=== PATIENT | male | born 1940 | race Caucasian/White ===

== ENCOUNTER → 2016-10-11 | Outpatient (REF) | payer MEDICARE, OTHER ==
[~2016-10-11] MED LIST: /WARF5TA OR; ACET65TA OR; ASPI81TA3 OR; DIGO0.126 OR; LACTASE ENZYME PO; LASI20TA OR; LEVO75TA2 OR; NEXI20CA OR; NITR0.4S SL; PRESERVISION PO; VITA250T OR
[2016-10-15 00:15] LABS: Lyme Disease IgG/IgM Antibodie <0.91 ISR (0.00-0.90); Lyme Disease IgM Ab Quantitati <0.80 index (0.00-0.79)
== END ==
LOC: M SFHCPLAZ 11:55
PROVIDERS: ATTEND Nurse Practitioner Family
DX: S60.561A Insect bite (nonvenomous) of right hand, initial encounter (principal); X58.XXXA Exposure to other specified factors, initial encounter; Y92.89 Other specified places as the place of occurrence of the external cause; Y93.89 Activity, other specified; Y99.8 Other external cause status
CPT/HCPCS: 36415; 86617; G0463

== ENCOUNTER → 2016-11-25 | Outpatient (REF) | payer MEDICARE, OTHER | LOC: M LAB REF 15:08 | PROVIDERS: ATTEND Surgery | DX: C44.519 Basal cell carcinoma of skin of other part of trunk (principal) ==

== ENCOUNTER → 2017-01-03 | Outpatient (REF) | payer MEDICARE, OTHER ==
[2017-01-03 13:18] LABS: INR 3.12
== END ==
LOC: M SFHCPLAZ 09:07
PROVIDERS: ATTEND Internal Medicine
DX: I48.91 Unspecified atrial fibrillation (principal)

== ENCOUNTER → 2017-07-04 | Outpatient (REF) | payer MEDICARE, OTHER ==
[2017-07-04 12:12] LABS: HEMATOCRIT 42.8 % (42.0-52.0); HEMOGLOBIN 13.9 g/dl (14.0-18.0); MEAN CORPUSCULAR HEMOGLOBIN 32.9 pg (27.0-33.0); MEAN CORPUSCULAR HGB CONC 32.5 g/dl (32.0-36.5); MEAN CORPUSCULAR VOLUME 101.4 fl (80.0-96.0); PLATELET COUNT, AUTOMATED 150 10^3/uL (150-450); RED BLOOD COUNT 4.22 10^6/uL (4.30-6.10); RED CELL DISTRIBUTION WIDTH 13.2 % (11.5-14.5); WHITE BLOOD COUNT 7.6 10^3/uL (4.0-10.0)
[2017-07-04 12:13] LABS: INR 2.43; PROTHROMBIN TIME 27.4 SECONDS (12.4-14.5)
[2017-07-04 12:18] LABS: ALBUMIN 3.6 GM/DL (3.2-5.2); ALBUMIN/GLOBULIN RATIO 1.16 (1.00-1.93); ALKALINE PHOSPHATASE 75 U/L (45-117); ALT/SGPT 16 U/L (12-78); ANION GAP 5 MEQ/L (8-16); AST/SGOT 17 U/L (7-37); BILIRUBIN,TOTAL 0.5 MG/DL (0.2-1.0); BLOOD UREA NITROGEN 20 MG/DL (7-18); CALCIUM LEVEL 9.1 MG/DL (8.8-10.2); CARBON DIOXIDE LEVEL 30 MEQ/L (21-32); CHLORIDE LEVEL 105 MEQ/L (98-107); GLOMERULAR FILTRATION RATE > 60.0 (>42); GLUCOSE, FASTING 98 MG/DL (70-100); POTASSIUM SERUM 4.4 MEQ/L (3.5-5.1); SODIUM LEVEL 140 MEQ/L (136-145); TOTAL PROTEIN 6.7 GM/DL (6.4-8.2)
== END ==
LOC: M SFHCPLAZ 08:41
DX: Z51.81 Encounter for therapeutic drug level monitoring (principal); Z79.01 Long term (current) use of anticoagulants; I25.10 Atherosclerotic heart disease of native coronary artery without angina pectoris
CPT/HCPCS: 80053

== ENCOUNTER → 2017-08-12 | Outpatient (REF) | payer MEDICARE, OTHER ==
[2017-08-12 14:37] LABS: INR 2.39
== END ==
LOC: M SFHCPLAZ 10:57
DX: Z51.81 Encounter for therapeutic drug level monitoring (principal); Z79.01 Long term (current) use of anticoagulants
CPT/HCPCS: 85610

== ENCOUNTER → 2018-01-12 | Outpatient (REF) | payer MEDICARE, OTHER ==
[2018-01-12 12:22] LABS: ALBUMIN 3.5 GM/DL (3.2-5.2); ALBUMIN/GLOBULIN RATIO 1.09 (1.00-1.93); ALKALINE PHOSPHATASE 75 U/L (45-117); ALT/SGPT 16 U/L (12-78); ANION GAP 6 MEQ/L (8-16); AST/SGOT 15 U/L (7-37); BILIRUBIN,TOTAL 0.4 MG/DL (0.2-1.0); BLOOD UREA NITROGEN 25 MG/DL (7-18); CALCIUM LEVEL 8.4 MG/DL (8.8-10.2); CARBON DIOXIDE LEVEL 30 MEQ/L (21-32); CHLORIDE LEVEL 104 MEQ/L (98-107); CHOLESTEROL LEVEL 127 MG/DL (<200); CHOLESTEROL RISK RATIO 3.256 (<5); CREATININE FOR GFR 1.01 MG/DL (0.70-1.30); GLOMERULAR FILTRATION RATE > 60.0 (>42); GLUCOSE, FASTING 104 MG/DL (70-100); HDL CHOLESTEROL 39 MG/DL (>40); LDL CHOLESTEROL 65 MG/DL (<100); MAGNESIUM LEVEL 1.9 MG/DL (1.8-2.4); NON-HDL-C 88 MG/DL; POTASSIUM SERUM 4.5 MEQ/L (3.5-5.1); SODIUM LEVEL 140 MEQ/L (136-145); TOTAL PROTEIN 6.7 GM/DL (6.4-8.2); TRIGLYCERIDES LEVEL 116 MG/DL (<150)
[2018-01-12 12:27] LABS: ESTIMATED AVERAGE GLUCOSE 114 MG/DL (60-110); HEMOGLOBIN A1c 5.6 %
== END ==
LOC: M SFHCPLAZ 09:20
DX: I10 Essential (primary) hypertension (principal); R73.01 Impaired fasting glucose; E78.00 Pure hypercholesterolemia, unspecified
CPT/HCPCS: 83735

== ENCOUNTER → 2018-04-10 | Outpatient (REF) | payer MEDICARE, OTHER | LOC: M SFHCPLAZ 13:53 | PROVIDERS: ATTEND Internal Medicine | DX: E03.9 Hypothyroidism, unspecified (principal) | CPT/HCPCS: 36415; 84443; G0463 ==

== ENCOUNTER → 2018-05-29 | Outpatient (REF) | payer MEDICARE, OTHER ==
[2018-05-29 16:01] LABS: HEMATOCRIT 43.2 % (42.0-52.0); HEMOGLOBIN 14.2 g/dl (13.5-17.5); MEAN CORPUSCULAR HEMOGLOBIN 32.8 pg (27.0-33.0); MEAN CORPUSCULAR HGB CONC 32.9 g/dl (32.0-36.5); MEAN CORPUSCULAR VOLUME 99.8 fl (80.0-96.0); PLATELET COUNT, AUTOMATED 138 10^3/uL (150-450); RED BLOOD COUNT 4.33 10^6/uL (4.30-6.10); WHITE BLOOD COUNT 8.5 10^3/uL (4.0-10.0)
[2018-05-29 16:04] LABS: ALBUMIN 3.4 GM/DL (3.2-5.2); ALT/SGPT 17 U/L (12-78); BILIRUBIN,TOTAL 0.6 MG/DL (0.2-1.0); BLOOD UREA NITROGEN 19 MG/DL (7-18); CALCIUM LEVEL 8.8 MG/DL (8.8-10.2); CARBON DIOXIDE LEVEL 27 MEQ/L (21-32); CHLORIDE LEVEL 105 MEQ/L (98-107); CREATININE FOR GFR 0.94 MG/DL (0.70-1.30); GLOMERULAR FILTRATION RATE > 60.0 (>42); GLUCOSE, FASTING 87 MG/DL (70-100); POTASSIUM SERUM 4.6 MEQ/L (3.5-5.1); SODIUM LEVEL 140 MEQ/L (136-145); TOTAL PROTEIN 6.5 GM/DL (6.4-8.2)
[2018-05-29 16:11] LABS: INR 1.1; PROTHROMBIN TIME 14.3 SECONDS (12.1-14.4)
[2018-05-29 16:12] LABS: PARTIAL THROMBOPLASTIN TIME 31.3 SECONDS (25.4-37.6)
== END ==
LOC: M SFHCPLAZ 13:57
PROVIDERS: ATTEND Internal Medicine
DX: Z01.818 Encounter for other preprocedural examination (principal); I50.30 Unspecified diastolic (congestive) heart failure; Z79.01 Long term (current) use of anticoagulants
CPT/HCPCS: 36415; 80053; 85027; 85610; 85730; G0463

== ENCOUNTER → 2018-07-12 | Outpatient (REF) | payer MEDICARE, OTHER ==
[~2018-07-12] MED LIST changes: -/WARF5TA OR; +COUM1TAB17 OR
[2018-07-12 14:13] LABS: ALBUMIN 3.4 GM/DL (3.2-5.2); ALT/SGPT 15 U/L (12-78); BILIRUBIN,TOTAL 0.7 MG/DL (0.2-1.0); BLOOD UREA NITROGEN 21 MG/DL (7-18); CALCIUM LEVEL 8.7 MG/DL (8.8-10.2); CARBON DIOXIDE LEVEL 29 MEQ/L (21-32); CHLORIDE LEVEL 105 MEQ/L (98-107); CREATININE FOR GFR 0.97 MG/DL (0.70-1.30); GLOMERULAR FILTRATION RATE > 60.0 (>35); GLUCOSE, FASTING 89 MG/DL (70-100); MAGNESIUM LEVEL 2.1 MG/DL (1.8-2.4); POTASSIUM SERUM 4.2 MEQ/L (3.5-5.1); SODIUM LEVEL 141 MEQ/L (136-145); TOTAL PROTEIN 6.1 GM/DL (6.4-8.2)
[2018-07-12 14:19] LABS: HEMOGLOBIN A1c 5.7 %
[2018-07-12 15:58] LABS: HEMATOCRIT 42.6 % (42.0-52.0); HEMOGLOBIN 13.9 g/dl (13.5-17.5); MEAN CORPUSCULAR HEMOGLOBIN 32.9 pg (27.0-33.0); MEAN CORPUSCULAR HGB CONC 32.6 g/dl (32.0-36.5); MEAN CORPUSCULAR VOLUME 100.9 fl (80.0-96.0); PLATELET COUNT, AUTOMATED 174 10^3/uL (150-450); RED BLOOD COUNT 4.22 10^6/uL (4.30-6.10); WHITE BLOOD COUNT 7.6 10^3/uL (4.0-10.0)
== END ==
LOC: M SFHCPLAZ 10:33
PROVIDERS: ATTEND Internal Medicine
DX: G47.30 Sleep apnea, unspecified (principal); I50.30 Unspecified diastolic (congestive) heart failure; R73.01 Impaired fasting glucose; E03.9 Hypothyroidism, unspecified

== ENCOUNTER 2018-08-13 22:40 | Observation (INO) | payer MEDICARE, OTHER ==
[~2018-08-13] VITALS: Ht 180.3 cm; Wt 93.3 kg
--- NOTE | 2018-08-14 00:14 | REPVR ---
EXAM: CT Head Without Contrast EXAM DATE/TIME: 08/13/2018 11:32 PM CLINICAL HISTORY: 78 years old, male; Pain; Other: Weakness; Additional info: L weakness TECHNIQUE: Imaging protocol: Axial computed tomography images of the head/brain without contrast. Radiation optimization: All CT scans at this facility use at least one of these dose optimization techniques: automated exposure control; mA and/or kV adjustment per patient size (includes targeted exams where dose is matched to clinical indication); or iterative reconstruction. COMPARISON: No relevant prior studies available. FINDINGS: Brain: No intracranial mass, focal mass effect or midline shift. No acute intracranial hemorrhage. Mild decreased attenuation in periventricular/centrum semiovale white matter. No focal effacement of cortical sulci to indicate acute cortical infarct. 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 Bones/joints: No calvarial fracture or destructive process. Sinuses: Visualized paranasal sinuses are unremarkable. Mastoid air cells: Mastoid air cells are normally aerated. Orbits: Visualized globes and orbits are unremarkable. Ocular globe scleral prostheses are present Soft tissues: No focal extracranial soft tissue swelling. IMPRESSION: 1. No acute intracranial abnormality. 2. Atrophy and chronic microangiopathic change in supratentorial white matter. Electronically signed by: Jt Shabazz On 08/14/2018 00:13:54 AM
[2018-08-14 00:39] LABS: BASO # 0.1 10^3/uL (0.0-0.2); BASO % 0.6 % (0.0-1.0); EOS # 0.2 10^3/uL (0.0-0.50); EOS % 2.2 % (0.0-3.0); HEMATOCRIT 42.1 % (42.0-52.0); HEMOGLOBIN 14.1 g/dl (13.5-17.5); LYMPH # 2.4 10^3/uL (1.5-4.5); LYMPH % 27.8 % (24.0-44.0); MEAN CORPUSCULAR HEMOGLOBIN 34.1 pg (27.0-33.0); MEAN CORPUSCULAR HGB CONC 33.5 g/dl (32.0-36.5); MEAN CORPUSCULAR VOLUME 101.9 fl (80.0-96.0); MONO # 0.8 10^3/uL (0.0-0.8); MONO % 9.6 % (0.0-5.0); NEUTROPHILS # 5.2 10^3/uL (1.8-7.7); NEUTROPHILS % 59.3 % (36.0-66.0); PLATELET COUNT, AUTOMATED 143 10^3/uL (150-450); RED BLOOD COUNT 4.13 10^6/uL (4.30-6.10); WHITE BLOOD COUNT 8.7 10^3/uL (4.0-10.0)
[2018-08-14 00:50] LABS: INR 1.13; PROTHROMBIN TIME 14.7 SECONDS (12.1-14.4)
[2018-08-14 01:01] LABS: BLOOD UREA NITROGEN 28 MG/DL (7-18); CALCIUM LEVEL 8.3 MG/DL (8.8-10.2); CARBON DIOXIDE LEVEL 30 MEQ/L (21-32); CHLORIDE LEVEL 108 MEQ/L (98-107); CREATININE FOR GFR 1.06 MG/DL (0.70-1.30); DIGOXIN LEVEL 0.5 NG/ML (0.5-2.0); GLOMERULAR FILTRATION RATE > 60.0 (>35); GLUCOSE, FASTING 114 MG/DL (70-100); POTASSIUM SERUM 3.9 MEQ/L (3.5-5.1); SODIUM LEVEL 142 MEQ/L (136-145)
--- NOTE | 2018-08-14 02:15 | HPEPDOC ---
General Date of Admission Chief Complaint The patient is a 78-year-old male admitted with a reason for visit of Neuro Issue. History of Present Illness Mr. Sheets is an 78 years old man who was cleaning his car in the garage last night, when suddenly he felt loss of sensation in his right arm and right leg. He is not sure if he also had weak strength, but he felt awkward he was walked into the house. Denies any loss of balance, or problem with speech, vision or other problems. The symptoms lasted about 15 minutes and subsided spontaneously. Pt has hx/o AF and takes Eliquis. In the ER, pt remained neurologically intact. Mental status, head CT, vitals and basic labs were normal. Home Medications Scheduled Apixaban (Eliquis) 5 Mg Tablet, 5 MG PO BID, (Reported) Aspirin (Aspir 81) 81 Mg Tablet.dr, 81 MG PO DAILY, (Reported) Carboxymethyl/Glycerin/Poly80 (Refresh Optive Advanced Drops) 10 Ml Drops, 1 DROP OU QID, (Reported) Cholecalciferol (Vitamin D3) (Vitamin D3) 2,000 Unit Capsule, 2,000 UNIT PO DAILY, (Reported) Clobetasol Propionate (Clobetasol Propionate) 0.05% 118ML Shampoo, 1 APPLIC TOP 2XWK, (Reported) APPLY TO DRY SCALP Digoxin (Digoxin) 125 Mcg Tablet, 125 MCG PO 4XWK, (Reported) TAKES ON TUESDAY, TUESDAY, TUESDAY AND TUESDAY Eplerenone (Eplerenone) 50 Mg Tablet, 50 MG PO DAILY, (Reported) Esomeprazole Magnesium (Esomeprazole Magnesium) 40 Mg Capsule.dr, 40 MG PO QPM, (Reported) Evolocumab (Repatha Sureclick) 140 Mg/1 Ml Pen.injctr, 140 MG SC Q2WK, (Reported) Glucosa Campa 2Kcl/Chondroitin Campa (Glucosamine & Chondroitin Cap) 1 Each Capsule, 1 EACH PO DAILY, (Reported) Icosapent Ethyl (Vascepa) 1 Gm Capsule, 1 GM PO BID, (Reported) Levothyroxine Sodium (Synthroid) 75 Mcg Tablet, 75 MCG PO DAILY, (Reported) Tamsulosin HCl (Flomax) 0.4 Mg Capsule, 0.4 MG PO QPM, (Reported) TAKES 1/2 HOUR AFTER DINNER Vit C/E/Zn/Coppr/Lutein/Zeaxan (Preservision Areds 2 Softgel) 1 Each Capsule, 1 EACH PO BID, (Reported) Scheduled PRN Carboxymethylcellulos/Glycerin (Refresh Optive Gel Eye Drops) 10 Ml Drops.gel, 1 DROP OU QHS PRN for DRY EYES, (Reported) Nitroglycerin (Nitrostat) 0.4 Mg Tab.subl, 0.4 MG SL NITRO PRN for CHEST PAIN, (Reported) Allergies Coded Allergies: Izbezuo-Wyx-Nyv Reductase Inhibitor (Verified Allergy, Unknown, CRAMPING , 08/13/18) diazepam (Verified Allergy, Unknown, MAKES PSYCOTIC , 08/13/18) Past Medical History Medical History PAST MEDICAL HISTORY DIASTOLIC CONGESTIVE HEART FAILURE HYPERCHOLESTEROLEMIA SLEEP APNEA ELEVATED FASTING GLUCOSE HYPOTHYROIDISM PERIPHERAL NEUROPATHY LOWER EXTREMITY EDEMA CORONARY ARTERY DISEASE LONGTERM (CURRENT) USE OF ANTICOAGULANTS SLEEP RELATED LEG CRAMPS HYPERTENSION NEOPLASM OF BLADDER CHRONIC ATRIAL FIBRILLATION RIGHT LEG PAIN CONFUSION, HX OF, WITHOUT NEURO FINDINGS ALLERGIES LATEX GLOVES: IRRITATION - ALLERGY VALIUM: MAKES PATIENT PSYCHOTIC, PER PATIENT - ALLERGY SURGICAL HISTORY TONSILLECTOMY BILATERAL RETINAL DETACHMENT REPAIRS 1983 LEFT INGUINAL HERNIA REPAIR 06/16. 06/2007 COLONOSCOPY 10/2008 RIGHT INGUINAL HERNIA REPAIR 12/18. 12/2008 BILATERAL CATARACT EXTRACTIONS 07/2009 REPAIR OF ABDOMINAL AORTIC ANEURYSM AND BILATERAL COMMON ILIAC ARTERY ANEURYSMS WITH AORTA BI-INTERNAL ILIAC ARTERY BYPASS GRAFT AND AORTA TO EXTERNAL ILIAC ARTERY BYPASS GRAFT ON 07/06/2010 AT THE [facility] [place]. 07/06/10 RIGHT ILIAC ARTERY STENT 02/18/2011. 02/18/2011 PACEMAKER 08/04/11 [facility], 3 CARDIAC STENTS PLACED WITH ANGIOPLASTY AND ABLATION, DR. 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 ESCOTO 07/12/2017 TURBT AND CIRCUMCISION 06/12/2018 FAMILY HISTORY FATHER: 78 YRS, DIAGNOSED WITH HEART DISEASE MOTHER: 78 YRS, PERITONITIS FATHER AND MOTHER OF NATURAL CAUSES. THREE BROTHERS LIVING, ONE HAD PROSTATE CANCER. THREE HEALTHY DAUGHTERS. Social History * Smoker: Denies Alcohol: Denies Drugs: denies A-FIB/CHADSVASC A-FIB History Current/History of A-Fib/PAF?: Yes Current Oral Anticoagulant The: Yes Age/Risk Factor Scoring CHADSVASC: CHADSVASC Response (Comments) Value Age Risk Factor Age >/= 75 years old 2 Hx of HTN Yes 1 Total 3 Treatment Treatment ordered: Apixaban Review of Systems Constitutional: Denies: Chills, Fever, Malaise, Night Sweats, Weakness, Fatigue, Weight Loss, Lethargy, Other Eyes: Denies: Pain, Vision change, Conjunctivae inflammation, Eyelid inflammation, Redness, Other ENT: Denies: Head Aches, Ear Pain, Dysphagia, Sinus Congestion, Post Nasal Drip, Sore Throat, Epistaxis, Other Symptoms Skin: Denies: Rash, Lesions, Jaundice, Bruising, Itching, Dry, Breakdown, Nail Changes, Other Pulmonary: Denies: Dyspnea, Cough, Pleuritic Chest Pain, Other Symptoms Cardiovascular: Denies: Chest Pain, Palpitations, Orthopnea, Paroxysmal Noc. Dyspnea, Edema, Lt Headedness, Other Symptoms Gastrointestinal: Denies: Nausea, Vomiting, Abdominal Pain, Diarrhea, Constipation, Melena, Hematochezia, Other Symptoms Genitourinary: Denies: Dysuria, Frequency, Incontinence, Hematuria, Retention, Other Symptoms Hematologic: Denies: Bruising, Bleeding Excessively, Petecchia, Purpura, Enlarged Lymph Nodes, Other Hematologic Endocrine: Denies: Polydipsia, Polyphagia, Polyuria, Heat Intolerance, Cold Intolerance, Other Endocrine Sx Musculoskeletal: Denies: Neck Pain, Back Pain, Shoulder Pain, Arm Pain, Hand Pain, Leg Pain, Foot Pain, Joint Pain, Muscle Pain, Spasms, Other Symptoms Neurological: Denies: Weakness, Numbness, Incoordination, Change in speech, Confusion, Seizures, Other Symptoms Psych: Denies: Mood Normal, Anxiety, Depression, Memory Issues, Thoughts of Self Harm, Anger, Thoughts of Harming Other, Other Psych Physical Examination General Exam: Positive: Alert, Cooperative, No Acute Distress Eye Exam: Positive: PERRLA ENT Exam: Positive: Atraumatic Neck Exam: Positive: Supple, Other (no carotid bruit); Negative: JVD Chest Exam: Positive: Clear to auscultation, Rales Heart Exam: Positive: Rate Normal, Irregular Rhythm Abdomen Exam: Positive: Normal bowel sounds, Soft, Tenderness Extremity Exam: Negative: Edema Skin Exam: Negative: Rash Neuro Exam: Positive: Normal Speech, Strength at 5/5 X4 ext, Normal Tone, Sensation Intact, Cranial Nerves 3-12 NL Psych Exam: Positive: Mental status NL, Mood NL Vital Signs Vital Signs Date Time Temp Pulse Resp B/P (MAP) Pulse Ox O2 Delivery O2 Flow Rate FiO2 08/14/18 00:30 80 16 138/64 (88) 97 Room Air 08/13/18 23:17 96.9 Laboratory Data Labs 24H Laboratory Tests 2 08/13/18 22:59: Immature Granulocyte % (Auto) 0.5, White Blood Count 8.7, Red Blood Count 4.13L, Hemoglobin 14.1, Hematocrit 42.1, Mean Corpuscular Volume 101.9H, Mean Corpu scular Hemoglobin 34.1H, Mean Corpuscular Hemoglobin Concent 33.5, Red Cell Distribution Width 13.1, Platelet Count 143L, Neutrophils (%) (Auto) 59.3, Lymphocytes (%) (Auto) 27.8, Monocytes (%) (Auto) 9.6H, Eosinophils (%) (Auto) 2.2, Basophils (%) (Auto) 0.6, Neutrophils # (Auto) 5.2, Lymphocytes # (Auto) 2.4, Monocytes # (Auto) 0.8, Eosinophils # (Auto) 0.2, Basophils # (Auto) 0.1, Nucleated Red Blood Cells % (auto) 0.0, Prothrombin Time 14.7H, Prothromb Time International Ratio 1.13, Activated Partial Thromboplast Time 33.0, Anion Gap 4L, Glomerular Filtration Rate > 60.0, Blood Urea Nitrogen 28H, Creatinine 1.06, Sodium Level 142, Potassium Level 3.9, Chloride Level 108H, Carbon Dioxide Level 30, Calcium Level 8.3L, Digoxin Level 0.5 CBC/BMP Laboratory Tests 08/13/18 22:59 Red Blood Count 4.13 L, Mean Corpuscular Volume 101.9 H, Mean Corpuscular Hemoglobin 34.1 H, Mean Corpuscular Hemoglobin Concent 33.5, Red Cell Distribution Width 13.1, Neutrophils (%) (Auto) 59.3, Lymphocytes (%) (Auto) 27.8, Monocytes (%) (Auto) 9.6 H, Eosinophils (%) (Auto) 2.2, Basophils (%) (Auto) 0.6, Neutrophils # (Auto) 5.2, Lymphocytes # (Auto) 2.4, Monocytes # (Auto) 0.8, Eosinophils # (Auto) 0.2, Basophils # (Auto) 0.1, Calcium Level 8.3 L Assessment/Plan 78 years old man with AF presenting with brief episode of loss of sensation on left arm and left leg. TIA - Keep in Observation overnight - Continue home meds including Eliquis - Echo and carotid duplex in the morning - Monitor clinically Plan / VTE VTE Prophylaxis Ordered?: No VTE Exclusion Mechanical Proph: Other (pt on eliquis) VTE Exclusion Pharmacological: Other (pt on eliquis) Plan Anticipated Discharge: Home LYNDA BURGOS MD August 14, 2018 02:15
[2018-08-14] MEDS ORDERED: SYNT75TA PO (02:37)
[2018-08-14] MEDS ORDERED: REFR1GEL OU (02:37)
[2018-08-14] MEDS ORDERED: DIGO0.12 PO (02:37)
[2018-08-14] MEDS ORDERED: VASC1CAP2 PO (02:37)
[2018-08-14] MEDS ORDERED: FLOM0.4C39 PO (02:37)
[2018-08-14] MEDS ORDERED: REPA1INJ SC (02:37)
[2018-08-14] MEDS ORDERED: REFRSOL OU (02:37)
[2018-08-14] MEDS ORDERED: ELIQ5TAB PO (02:37)
[2018-08-14] MEDS ORDERED: D200CAP2 PO (02:37)
[2018-08-14] MEDS ORDERED: PRES10CA2 PO (02:37)
[2018-08-14] MEDS ORDERED: GLUC500C37 PO (02:37)
[2018-08-14] MEDS ORDERED: EPLE50TA PO (02:37)
[2018-08-14] MEDS ORDERED: ESOM1CAP5 PO (02:37)
[2018-08-14] MEDS ORDERED: ASPI81TA85 PO (02:37)
[2018-08-14] MEDS ORDERED: NITR4TASL SL (02:37)
[2018-08-14] MEDS ORDERED: CLOB-24 TOP (02:37)
[2018-08-14 04:00] VITALS: BP 140/80
[2018-08-14] MEDS: LEVOTHYROXINE 75MCG TABLET (0.075MG) PO SCH (05:42)
[2018-08-14 06:00] VITALS: BP 130/62
--- NOTE | 2018-08-14 08:24 | ECGEPIP ---
Stationary ECG Study [facility] - ED Test Date: 2018-08-13 Pat Name: ZACHARY AMARO Department: Room: [place] [address] Gender: M Guest Relations Executive: JULIAN : 1940 Requested By: BONILLA BYRNE Order Number: [id number] Reading MD: Josep Pak Measurements Intervals [place] Rate: 91 P: [place]: 0 QRS: -34 QRSD: 100 T: 50 QT: 334 QTc: 413 Interpretive Statements ATRIAL FIBRILLATION LEFT AXIS DEVIATION INCOMPLETE RIGHT BUNDLE BRANCH BLOCK POOR R WAVE PROGRESSION SIMILAR TO 08/04/11 Electronically Signed On 08-14-2018 8:24:14 EDT by Josep Pak
--- NOTE | 2018-08-14 09:04 | REP ---
Duplex carotid sonography: History: TIA. Left-sided weakness. Findings: Antegrade flow was observed in both vertebral arteries. Right carotid: The right common carotid artery is unremarkable on two-dimensional scanning. There is mild to moderate mixed plaquing in the right carotid bulb and proximal ICA on two-dimensional scanning. Color flow and spectral Doppler interrogation are unremarkable however. Velocity chart right carotid: Right CCA PSV 96 cm/S, right ICA PSV 67, EDV 19, right ECA PSV 68 right, ICA/CCA ratio normal 1.3. Impression: 16-49% category narrowing in the right carotid bulb and proximal ICA. Left carotid: The left common carotid artery is unremarkable on two-dimensional scanning. There is moderate mixed plaquing in the bulb and proximal ICA and proximal ECA on two-dimensional scanning. Color flow and spectral Doppler interrogation are unremarkable. Velocity chart left carotid: Left CCA PSV 71 cm/S, left ICA PSV 68, EDV 21, left ECA PSV 88 left ICA/cc ratio normal 1.4. Impression: 16-49% category narrowing in the left ICA by Doppler velocity criteria. Probably near the upper end of this range. Electronically Signed by Mike Christiansen MD 08/14/2018 11:41 A
[2018-08-14] MEDS: ASPIRIN 81 MG ENTERIC TAB PO SCH (09:17)
[2018-08-14] MEDS: PANTOPRAZOLE 40MG TAB (PROTONIX) PO SCH (09:17)
[2018-08-14] MEDS: APIXABAN 5 MG TAB (ELIQUIS) PO SCH ×2 (09:17→21:11)
[2018-08-14 10:00] VITALS: BP 115/57
[2018-08-14 14:00] VITALS: BP 112/61
--- NOTE | 2018-08-14 17:12 | IPNPDOC ---
Date Seen The patient was seen on 08/14/18. Progress Note SUBJECTIVE: Patient was seen and examined this morning. He currently has no complaints. He states that he has had no further numbness on his left side. He denies any weakness. He states that he never had any weakness. He recalls a similar event to this several years ago. He has stated that he has had [employer] Amnesia in the past however, currently denies any confusion. Patient currently has no complaints OBJECTIVE PHYSICAL EXAMINATION: VITAL SIGNS: Please see below. GENERAL: Awake, alert, and oriented. He appears in no acute distress. He is lying comfortably in his chair. He is conversive and cheerful HEENT: Atrumatic normocephalic. Eyes are nonicteric. Trachea is midline. Dentition is good. Mucous membranes are pink and moist CARDIOVASCULAR: Normal S1, S2. Irregularly irregular rhythm. Regular rate. No clicks, rubs, or murmurs RESPIRATORY: Clear vesicular breath sound bilaterally with good respiratory effort. No wheezes, rhonci, or rales ABDOMINAL: Soft, nondistended, nontender to palpation of all 4 quadrants. No rebound tenderness or guarding. Positive bowel sounds throughout EXTREMITIES: No edema. 2+ posterior tibial and radial pulses bilaterally NEUROLOGICAL: No focal neurological deficits. 5/5 muscle strength testing in bilateral upper and lower extremities. Sensation intact bilaterally in upper and lower extremities. PSYCHOLOGICAL: Mood and affect appear appropriate LABORATORY DATA, IMAGING STUDIES, MICROBIOLOGY: Please see below. Echocardiogram: Pending DVT prophylaxis ordered?: Eliquis ASSESSMENT AND PLAN: Patient is a 78 year old male who presented with a complaint of sudden onset left arm and leg numbness lasting approximately 15 minutes. PROBLEMS: 1. TIA -Patient presented with a complaint of pure sensory loss to his left side. He has had a carotid ultrasound which was unrevealing. Patient scheduled for echo. -Given his symptoms of pure sensory he may have lacunar infarcts. He may benefit from outpatient follow-up with Neurology 2. Atrial Fibrillation -Currently rate controlled and chronically anticoagulated on eliquis. -Echocardiogram report is pending 3. Hypothyroidism -Continue synthroid 4. GERD -Continue Protonix PO 5. BPH -Flomax 6. DVT prophylaxis -Eliquis DISPOSITION: Likely discharge pending Echocardiogram report A-FIB/CHADSVASC A-FIB History Current/History of A-Fib/PAF?: Yes Current Oral Anticoagulant The: Yes Age/Risk Factor Scoring CHADSVASC: CHADSVASC Response (Comments) Value Age Risk Factor Age >/= 75 years old 2 Hx of HTN Yes 1 Total 3 VS, I&O, 24H, Fishbone Vital Signs/I&O Vital Signs Date Time Temp Pulse Resp B/P (MAP) Pulse Ox O2 Delivery O2 Flow Rate FiO2 08/14/18 14:00 97.5 80 18 112/61 (78) 97 08/14/18 02:45 Room Air I&O- Last 24 Hours up to 6 AM 08/14/18 06:00 Intake Total 0 ml Output Total 0 ml Balance 0 ml Laboratory Data 24H LABS Laboratory Tests 2 08/13/18 22:59: Immature Granulocyte % (Auto) 0.5, White Blood Count 8.7, Red Blood Count 4.13L, Hemoglobin 14.1, Hematocrit 42.1, Mean Corpuscular Volume 101.9H, Mean Corpuscular Hemoglobin 34.1H, Mean Corpuscular Hemoglobin Concent 33.5, Red Cell Distribution Width 13.1, Platelet Count 143L, Neutrophils (%) (Auto) 59.3, Lymphocytes (%) (Auto) 27.8, Monocytes (%) (Auto) 9.6H, Eosinophils (%) (Auto) 2.2, Basophils (%) (Auto) 0.6, Neutrophils # (Auto) 5.2, Lymphocytes # (Auto) 2.4, Monocytes # (Auto) 0.8, Eosinophils # (Auto) 0.2, Basophils # (Auto) 0.1, Nucleated Red Blood Cells % (auto) 0.0, Prothrombin Time 14.7H, Prothromb Time International Ratio 1.13, Activated Partial Thromboplast Time 33.0, Anion Gap 4 L, Glomerular Filtration Rate > 60.0, Blood Urea Nitrogen 28H, Creatinine 1.06, Sodium Level 142, Potassium Level 3.9, Chloride Level 108H, Carbon Dioxide Level 30, Calcium Level 8.3L, Digoxin Level 0.5 CBC/BMP Laboratory Tests 08/13/18 22:59 Red Blood Count 4.13 L, Mean Corpuscular Volume 101.9 H, Mean Corpuscular Hemoglobin 34.1 H, Mean Corpuscular Hemoglobin Concent 33.5, Red Cell Distribution Width 13.1, Neutrophils (%) (Auto) 59.3, Lymphocytes (%) (Auto) 27.8, Monocytes (%) (Auto) 9.6 H, Eosinophils (%) (Auto) 2.2, Basophils (%) (Auto) 0.6, Neutrophils # (Auto) 5.2, Lymphocytes # (Auto) 2.4, Monocytes # (Auto) 0.8, Eosinophils # (Auto) 0.2, Basophils # (Auto) 0.1, Calcium Level 8.3 L GME ATTESTATION GME ATTESTATION My faculty preceptor for this patient encounter was physically present during the encounter and was fully available. All aspects of the patient interview, examination, medical decision making process, and medical care plan development were reviewed and approved by the faculty preceptor. The faculty preceptor is aware and concurs with the plan as stated in the body of this note and will attest to such by his/her cosignature. LISA HOOPER DO August 14, 2018 17:12
[2018-08-14] MEDS: TAMSULOSIN 0.4 MG CAP PO SCH (17:54)
[2018-08-14 18:00] VITALS: BP 132/83
[2018-08-14 22:00] VITALS: BP 128/79
[2018-08-15 02:00] VITALS: BP 152/72
[2018-08-15 06:00] VITALS: BP 162/80
[2018-08-15] MEDS: LEVOTHYROXINE 75MCG TABLET (0.075MG) PO SCH (06:09)
[2018-08-15] MEDS: APIXABAN 5 MG TAB (ELIQUIS) PO SCH ×2 (08:40→20:11)
[2018-08-15] MEDS: ASPIRIN 81 MG ENTERIC TAB PO SCH (08:40)
[2018-08-15] MEDS: PANTOPRAZOLE 40MG TAB (PROTONIX) PO SCH (08:40)
[2018-08-15] MEDS ORDERED: DIGOXIN 0.125 MG TAB PO SCH (09:00)
[2018-08-15 09:42] LABS: CHOLESTEROL RISK RATIO 2.756 (<5); THYROID STIMULATING HORMONE 3.37 uIU/ML (0.358-3.740)
[2018-08-15 10:00] VITALS: BP 165/82
[2018-08-15 14:00] VITALS: BP 127/73
--- NOTE | 2018-08-15 15:28 | IPNPDOC ---
Date Seen The patient was seen on 08/15/18. Progress Note SUBJECTIVE: Pleasant gentleman with left-sided unusual sensation that resolved. Patient denied of any acute pain at this time. Patient states he has right knee joint displacement and has been using brace and cane. Patient normally follows up with Dr. Quintanilla for primary care and Dr. Libby cast for cardiology. Patient is on special anti-lipid medication injection which has helped him significantly. OBJECTIVE PHYSICAL EXAMINATION: GENERAL APPEARANCE: Resting comfortably HEENT: Normocephalic, PERRLA, Mucous moist, CARDIOVASCULAR: S1,S2, pulse present, irregular, LUNGS: Equal air entry b/l, no wheezes or crackle ABDOMEN: Soft, BS present, no tenderness, no guarding GENITOURINARY: No [place] EXTREMITIES: B/L no edema, capillary refill present SKIN: Warm, No fever NEUROLOGICAL: Cranial nerves grossly intact PSYCHIATRIC: Normal mood and affect for current situation Alert Answer both question correctly Follow both task correctly Normal Gaze No visual loss No facial palsy B/L Upper extremities no drift B/L Lower extremities no drift, uses a cane to ambulate due to knee problem No limb ataxia Sensory normal No aphasia No Dysarthria No neglect LABORATORY DATA, IMAGING STUDIES, MICROBIOLOGY: Please see below. Echocardiogram: [pending]. DVT prophylaxis ordered?: [yes] ASSESSMENT AND PLAN: Mr. Sheets is an 78 years old man who was cleaning his car in the garage last night, when suddenly he felt loss of sensation in his right arm and right leg. He is not sure if he also had weak strength, but he felt awkward he was walked into the house. Denies any loss of balance, or problem with speech, vision or other problems. The symptoms lasted about 15 minutes and subsided spontaneously. Pt has hx/o AF and takes Eliquis. In the ER, pt remained neurologically intact. Mental status, head CT, vitals and basic labs were normal. 78 years old man with AF presenting with brief episode of loss of sensation on left arm and left leg. TIA - Keep in Observation overnight - Continue home meds including Eliquis - Echo and carotid duplex in the morning - Monitor clinically -CT head:1. No acute intracranial abnormality. 2. Atrophy and chronic microangiopathic change in supratentorial white matter. -Repeat CT head: pending -MRI/MRA brain unable to obtain due to PPM -a1c nml -lipid profile and TSH within nml -US doppler:16-49% category narrowing in the left ICA by Doppler velocity criteria. Probably near the upper end of this range. -Outpatient follow up PCP and with vascular and cardiology -PT/OT -Eliquis,aspirin,Evolocumab Patient states he has right knee joint displacement and has been using brace and cane. Hypothyroidism, resume Synthroid BPH, resume Flomax GERD, resume home regimen DISPOSITION: [awaiting results]. A-FIB/CHADSVASC Age/Risk Factor Scoring CHADSVASC: CHADSVASC Response (Comments) Value Age Risk Factor Age >/= 75 years old 2 Hx of HTN Yes 1 Total VS, I&O, 24H, Fishbone Vital Signs/I&O Vital Signs Date Time Temp Pulse Resp B/P (MAP) Pulse Ox O2 Delivery O2 Flow Rate FiO2 08/15/18 10:00 98.5 97 18 165/82 (109) 98 08/14/18 02:45 Room Air I&O- Last 24 Hours up to 6 AM 08/15/18 06:00 Intake Total 1270 ml Output Total 850 ml Balance 420 ml Laboratory Data 24H LABS Laboratory Tests 2 08/15/18 08:40: Estimated Mean Plasma Glucose 126H, Hemoglobin A1c 6.0, Triglycerides Level 119, LDL Cholesterol 48, Total Cholesterol 113, Non-HDL Cholesterol (LDL + VLDL) 72, Total HDL Cholesterol 41, Cholesterol/HDL Ratio 2.756, Thyroid Stimulating Hormone (TSH) 3.370 MARY NUÑEZ MD August 15, 2018 15:28
[2018-08-15 18:00] VITALS: BP 130/72
[2018-08-15] MEDS: TAMSULOSIN 0.4 MG CAP PO SCH (18:05)
--- NOTE | 2018-08-15 18:33 | REP ---
CT brain without contrast: History: Possible TIA. Comparison CT study is from August 13, 2018. CT findings: Preliminary digital pre press manager radiograph is unremarkable. Bone window settings demonstrate an intact bony calvarium. Visualized paranasal sinuses are clear. Vascular calcification is again visible in the carotid arteries distally and in the vertebral artery on the left. Sclerosed bands are noted bilaterally in the orbits. No other intraorbital abnormality is seen. The visualized paranasal sinuses are unremarkable. On soft tissue window settings, there is moderate diffuse cerebral atrophy. There are periventricular white matter low density changes consistent with small vessel atherosclerotic disease. There is no evidence of acute infarction. There is a small old lacunar infarct in the subcortical white matter of the left posterior frontal lobe unchanged. A small lacunar infarct may be present in the anterior limb of the left internal capsule but this appears old and is unchanged as well. There is no evidence of hemorrhage, mass, extra-axial fluid collection or midline shift. Impression: Generalized volume loss, small vessel changes, vascular calcification and old lacunar infarcts unchanged. No acute intracranial abnormality. Electronically Signed by Mike Christiansen MD 08/15/2018 10:37 P
[2018-08-15 22:00] VITALS: BP 132/64
[2018-08-16 02:00] VITALS: BP 145/74
[2018-08-16] MEDS: LEVOTHYROXINE 75MCG TABLET (0.075MG) PO SCH (05:59)
[2018-08-16 06:00] VITALS: BP 142/84
[2018-08-16] MEDS: PANTOPRAZOLE 40MG TAB (PROTONIX) PO SCH (08:56)
[2018-08-16] MEDS: APIXABAN 5 MG TAB (ELIQUIS) PO SCH (08:57)
[2018-08-16] MEDS: ASPIRIN 81 MG ENTERIC TAB PO SCH (08:57)
--- NOTE | 2018-08-16 09:00 | ECHO ---
DATE OF PROCEDURE: 08/15/2018 DATE OF : 1940 AGE: 78 GENDER: Male HEIGHT: 71 inches WEIGHT: 202 pounds BODY SURFACE AREA: 2.12 meters squared INPATIENT: [facility]231 REFERRING PHYSICIAN: Dr. Devon Carlin INDICATION: CVA MEASUREMENTS 2-D measurements: RV: 4.8cm LV: 4.2 cm Septum: 1.2 cm Posterior wall: 1.2 cm Aortic root: 3.7 cm LA: 5.0 cm LVEF: 75% Doppler Measurements: AV: 1.07 m/s LVOT: 0.82 m/s LVOT diameter: 2.3 cm MV - E 83 Early mitral deceleration time: 208 ms E prime: 8.4 E/E prime ratio: 9.9. PCWP: 13.5 mmHg PV: 0.8 m/s Pulmonary artery acceleration time: 102 ms RVSP: 46 mmHg ICV: 1.7 cm COMMENTS: Underlying atrial fibrillation with controlled ventricular response. No intraventricular conduction disturbance. M-mode and two-dimensional echocardiography was performed with pulsed, continuous wave, color flow, and tissue Doppler studies. Mild concentric left ventricle hypertrophy with hyperkinetic wall motion. Prominently dilated left atrium with current estimated mean left atrial pressure upper limits of normal. Moderately dilated right heart chambers with normal wall motion and Doppler evidence of at least moderate pulmonary hypertension. Normal inferior vena cava (IVC) size with slightly reduced respiratory collapse suggestive of a central venous pressure upper limits of normal. Slight asymmetrical aortic valvular sclerosis without stenosis and only trace insufficiency. Normal aortic root size. Normal appearing mitral valvular apparatus with very mild insufficiency. Pacing lead could be visualized traversing right heart structures, but no other apparent intracardiac mass. No pericardial effusion. MTDD
[2018-08-16 10:00] VITALS: BP 130/65
--- NOTE | 2018-08-16 14:08 | DS.PDOC ---
Discharge Summary General Date of Admission August 14, 2018 at 02:15 Date of Discharge 08/16/18 Discharge Summary PROCEDURES PERFORMED DURING STAY: [None]. ADMITTING DIAGNOSES: TIA Atrial fibrillation Hypothyroidism BPH GERD DISCHARGE DIAGNOSES: TIA Atrial fibrillation Hypothyroidism BPH GERD COMPLICATIONS/CHIEF COMPLAINT: TIA. HISTORY OF PRESENT ILLNESS: [Mr. Sheets is an 78 years old man who was cleaning his car in the garage last night, when suddenly he felt loss of sensation in his right arm and right leg. He is not sure if he also had weak strength, but he felt awkward he was walked into the house. Denies any loss of balance, or problem with speech, vision or other problems. The symptoms lasted about 15 minutes and subsided spontaneously. Pt has hx/o AF and takes Eliquis. In the ER, pt remained neurologically intact. Mental status, head CT, vitals and basic labs were normal.]. HOSPITAL COURSE: [ Mr. Sheets is an 78 years old man who was cleaning his car in the garage last night, when suddenly he felt loss of sensation in his right arm and right leg. He is not sure if he also had weak strength, but he felt awkward he was walked into the house. Denies any loss of balance, or problem with speech, vision or other problems. The symptoms lasted about 15 minutes and subsided spontaneously. Pt has hx/o AF and takes Eliquis. In the ER, pt remained neurologically intact. Mental status, head CT, vitals and basic labs were normal. 78 years old pleasant gentleman with AF presenting with brief episode of loss of sensation on left arm and left leg. Workup done as below. Patient's symptoms resolved. Patient comfortable returning home today and following up with PCP and cardiology as outpatient. TIA, hx a.fib - Continue home meds including Eliquis -CT head:1. No acute intracranial abnormality. 2. Atrophy and chronic microangiopathic change in supratentorial white matter. -Repeat CT head: Generalized volume loss, small vessel changes, vascular calcification and old lacunar infarcts unchanged. No acute intracranial abnormality. -MRI/MRA brain unable to obtain due to PPM -a1c nml -lipid profile and TSH within nml -US doppler:16-49% category narrowing in the left ICA by Doppler velocity criteria. Probably near the upper end of this range. -Echo:Underlying atrial fibrillation with controlled ventricular response. No intraventricular conduction disturbance. M-mode and two-dimensional echocardiography was performed with pulsed, continuous wave, color flow, and tissue Doppler studies. Mild concentric left ventricle hypertrophy with hyperkinetic wall motion.Prominently dilated left atrium with current estimated mean left atrial pressure upper limits of normal. Moderately dilated right heart chambers with normal wall motion and Doppler evidence of at least moderate pulmonary hypertension. Normal inferior vena cava (IVC) size with slightly reduced respiratory collapse suggestive of a central venous pressure upper limits of normal. Slight asymmetrical aortic valvular sclerosis without stenosis and only trace insufficiency. Normal aortic root size. Normal appearing mitral valvular apparatus with very mild insufficiency. Pacing lead could be visualized traversing right heart structures, but no other apparent intracardiac mass. -PT/OT. Home discharge. -Eliquis,aspirin,Evolocumab -Outpatient follow up PCP and cardiology Patient states he has right knee joint displacement and has been using brace and cane. Hypothyroidism, resume Synthroid BPH, resume Flomax GERD, resume home regimen ]. DISCHARGE MEDICATIONS: Please see below. ALLERGIES: Please see below. PHYSICAL EXAMINATION ON DISCHARGE: PHYSICAL EXAMINATION: GENERAL APPEARANCE: Resting comfortably HEENT: Normocephalic, PERRLA, Mucous moist, CARDIOVASCULAR: S1,S2, pulse present, irregular, LUNGS: Equal air entry b/l, no wheezes or crackle ABDOMEN: Soft, BS present, no tenderness, no guarding GENITOURINARY: No Calero EXTREMITIES: B/L no edema, capillary refill present SKIN: Warm, No fever NEUROLOGICAL: Cranial nerves grossly intact PSYCHIATRIC: Normal mood and affect for current situation LABORATORY DATA: Please see below. IMAGING: [See reports above] PROGNOSIS: [improved] ACTIVITY: [As tolerated]. DIET: [Cardiac low salt diet] DISPOSITION:Home DISCHARGE CONDITION: [Stable]. TIME SPENT ON DISCHARGE: Greater than [35] minutes. Vital Signs/I&Os Vital Signs Date Time Temp Pulse Resp B/P (MAP) Pulse Ox O2 Delivery O2 Flow Rate FiO2 08/16/18 10:00 98.2 70 19 130/65 (86) 95 08/14/18 02:45 Room Air I&O- Last 24 Hours up to 6 AM 08/16/18 05:59 Intake Total 920 ml Output Total 1100 ml Balance -180 ml Discharge Medications Scheduled Apixaban (Eliquis) 5 Mg Tablet, 5 MG PO BID, (Reported) Aspirin (Aspir 81) 81 Mg Tablet.dr, 81 MG PO DAILY, (Reported) Carboxymethyl/Glycerin/Poly80 (Refresh Optive Advanced Drops) 10 Ml Drops, 1 DROP OU QID, (Reported) Cholecalciferol (Vitamin D3) (Vitamin D3) 2,000 Unit Capsule, 2,000 UNIT PO DAILY, (Reported) Clobetasol Propionate (Clobetasol Propionate) 0.05% 118ML Shampoo, 1 APPLIC TOP 2XWK, (Reported) APPLY TO DRY SCALP Digoxin (Digoxin) 125 Mcg Tablet, 125 MCG PO 4XWK, (Reported) TAKES ON TUESDAY, TUESDAY, TUESDAY AND TUESDAY Eplerenone (Eplerenone) 50 Mg Tablet, 50 MG PO DAILY, (Reported) Esomeprazole Magnesium (Esomeprazole Magnesium) 40 Mg Capsule.dr, 40 MG PO QPM, (Reported) Evolocumab (Repatha Sureclick) 140 Mg/1 Ml Pen.injctr, 140 MG SC Q2WK, (Reported) Glucosa Campa 2Kcl/Chondroitin Campa (Glucosamine & Chondroitin Cap) 1 Each Capsule, 1 EACH PO DAILY, (Reported) Icosapent Ethyl (Vascepa) 1 Gm Capsule, 1 GM PO BID, (Reported) Levothyroxine Sodium (Synthroid) 75 Mcg Tablet, 75 MCG PO DAILY, (Reported) Tamsulosin HCl (Flomax) 0.4 Mg Capsule, 0.4 MG PO QPM, (Reported) TAKES 1/2 HOUR AFTER DINNER Vit C/E/Zn/Coppr/Lutein/Zeaxan (Preservision Areds 2 Softgel) 1 Each Capsule, 1 EACH PO BID, (Reported) Scheduled PRN Carboxymethylcellulos/Glycerin (Refresh Optive Gel Eye Drops) 10 Ml Drops.gel, 1 DROP OU QHS PRN for DRY EYES, (Reported) Nitroglycerin (Nitrostat) 0.4 Mg Tab.subl, 0.4 MG SL NITRO PRN for CHEST PAIN, (Reported) Allergies Coded Allergies: [id number] Reductase Inhibitor (Verified Allergy, Unknown, CRAMPING , 08/13/18) diazepam (Verified Allergy, Unknown, MAKES PSYCOTIC , 08/13/18) MARY NUÑEZ MD August 16, 2018 14:08
== END 2018-08-16 15:53 | disposition home or self-care (01) ==
LOC: M ED 22:40 → M ED INP 08-14 02:15 → M MSPAV 08-14 03:01
PROVIDERS: ADMIT Internal Medicine; ATTEND Internal Medicine
DX: G45.9 Transient cerebral ischemic attack, unspecified (principal); I48.2 Chronic atrial fibrillation; E03.9 Hypothyroidism, unspecified; N40.0 Benign prostatic hyperplasia without lower urinary tract symptoms; K21.9 Gastro-esophageal reflux disease without esophagitis; I11.9 Hypertensive heart disease without heart failure; G47.30 Sleep apnea, unspecified; I25.10 Atherosclerotic heart disease of native coronary artery without angina pectoris; Z95.0 Presence of cardiac pacemaker; Z98.61 Coronary angioplasty status; I50.30 Unspecified diastolic (congestive) heart failure; Z85.51 Personal history of malignant neoplasm of bladder; Z91.040 Latex allergy status; Z79.01 Long term (current) use of anticoagulants; Z79.82 Long term (current) use of aspirin; Z79.899 Other long term (current) drug therapy; Z88.8 Allergy status to other drugs, medicaments and biological substances; E78.00 Pure hypercholesterolemia, unspecified
CPT/HCPCS: 36415; 70450; 80048; 80061; 80162; 83036; 84443; 85025; 85610; 85730; 93005; 93306; 93880; 97116; 97161; 97165; 97530; 99285; G0378

== ENCOUNTER → 2018-09-15 | Outpatient (REF) | payer MEDICARE, OTHER ==
[~2018-09-15] MED LIST changes: +ASPI81TA85 PO; +CLOB-24 TOP; +D200CAP2 PO; +DIGO0.12 PO; +ELIQ5TAB PO; +EPLE50TA PO; +ESOM1CAP5 PO; +FLOM0.4C39 PO; +GLUC500C37 PO; +NITR4TASL SL; +PRES10CA2 PO; +REFR1GEL OU; +REFRSOL OU; +REPA1INJ SC; +SYNT75TA PO; +VASC1CAP2 PO
[2018-09-15 18:16] LABS: BLOOD UREA NITROGEN 12 MG/DL (7-18); CALCIUM LEVEL 8.3 MG/DL (8.8-10.2); CARBON DIOXIDE LEVEL 30 MEQ/L (21-32); CHLORIDE LEVEL 104 MEQ/L (98-107); CREATININE FOR GFR 1.09 MG/DL (0.70-1.30); GLOMERULAR FILTRATION RATE > 60.0 (>35); GLUCOSE, FASTING 81 MG/DL (70-100); POTASSIUM SERUM 3.8 MEQ/L (3.5-5.1); SODIUM LEVEL 140 MEQ/L (136-145)
[2018-09-15 18:40] LABS: BASO % 0.5 % (0.0-1.0); EOS # 0.1 10^3/uL (0.0-0.50); EOS % 1.3 % (0.0-3.0); HEMATOCRIT 42.1 % (42.0-52.0); LYMPH # 1.9 10^3/uL (1.5-4.5); LYMPH % 24.4 % (24.0-44.0); MEAN CORPUSCULAR HEMOGLOBIN 33.8 pg (27.0-33.0); MEAN CORPUSCULAR HGB CONC 33.3 g/dl (32.0-36.5); MEAN CORPUSCULAR VOLUME 101.7 fl (80.0-96.0); MONO % 13.6 % (0.0-5.0); NEUTROPHILS # 4.6 10^3/uL (1.8-7.7); NEUTROPHILS % 59.9 % (36.0-66.0); PLATELET COUNT, AUTOMATED 166 10^3/uL (150-450); RED BLOOD COUNT 4.14 10^6/uL (4.30-6.10); WHITE BLOOD COUNT 7.6 10^3/uL (4.0-10.0)
== END ==
LOC: M SFHCPLAZ 14:43
PROVIDERS: ATTEND Nurse Practitioner Family
DX: R19.7 Diarrhea, unspecified (principal)
CPT/HCPCS: 36415; 80048; 85025; G0463

== ENCOUNTER → 2018-09-17 | Outpatient (REF) | payer MEDICARE, OTHER | LOC: M SFHCPLAZ 10:15 | PROVIDERS: ATTEND Nurse Practitioner Family | DX: R19.7 Diarrhea, unspecified (principal) ==

== ENCOUNTER → 2018-10-24 | Outpatient (REF) | payer MEDICARE, OTHER | LOC: M SFHCPLAZ 12:18 | PROVIDERS: ATTEND Internal Medicine | DX: G44.52 New daily persistent headache (NDPH) (principal) | CPT/HCPCS: 36415; 85652; 86140; G0463 ==

== ENCOUNTER → 2019-01-10 | Outpatient (REF) | payer MEDICARE, OTHER ==
[2019-01-10 12:12] LABS: HEMATOCRIT 43.9 % (42.0-52.0); HEMOGLOBIN 14.8 g/dl (13.5-17.5); MEAN CORPUSCULAR HEMOGLOBIN 34.3 pg (27.0-33.0); MEAN CORPUSCULAR HGB CONC 33.7 g/dl (32.0-36.5); MEAN CORPUSCULAR VOLUME 101.6 fl (80.0-96.0); PLATELET COUNT, AUTOMATED 146 10^3/uL (150-450); RED BLOOD COUNT 4.32 10^6/uL (4.30-6.10); WHITE BLOOD COUNT 8.3 10^3/uL (4.0-10.0)
[2019-01-10 13:13] LABS: ALBUMIN 3.4 GM/DL (3.2-5.2); ALT/SGPT 17 U/L (12-78); BILIRUBIN,TOTAL 0.5 MG/DL (0.2-1.0); BLOOD UREA NITROGEN 23 MG/DL (7-18); CALCIUM LEVEL 8.8 MG/DL (8.8-10.2); CARBON DIOXIDE LEVEL 27 MEQ/L (21-32); CHLORIDE LEVEL 106 MEQ/L (98-107); CHOLESTEROL LEVEL 116 MG/DL (<200); CREATININE FOR GFR 0.95 MG/DL (0.70-1.30); GLOMERULAR FILTRATION RATE > 60.0 (>35); GLUCOSE, FASTING 92 MG/DL (70-100); HDL CHOLESTEROL 40 MG/DL (>40); LDL CHOLESTEROL 50 MG/DL (<100); NON-HDL-C 76 MG/DL; POTASSIUM SERUM 4.3 MEQ/L (3.5-5.1); SODIUM LEVEL 142 MEQ/L (136-145); TRIGLYCERIDES LEVEL 132 MG/DL (<150)
== END ==
LOC: M SFHCPLAZ 08:48
PROVIDERS: ATTEND Internal Medicine
DX: G47.30 Sleep apnea, unspecified (principal); I50.30 Unspecified diastolic (congestive) heart failure; E78.00 Pure hypercholesterolemia, unspecified

== ENCOUNTER → 2019-03-05 | Outpatient (CLI) | payer MEDICARE, OTHER ==
--- NOTE | 2019-03-05 17:59 | REP ---
Clinical: Amaurosis fugax. Technique: Duvall scale and color Doppler evaluation using linear high frequency transducer Findings: Two-dimensional duvall scale and color images demonstrate moderate/significant focal partially calcified atheromatous plaquing at the carotid bulbs extending into the proximal internal and external carotid arteries (left greater than right). Color Doppler interrogation demonstrates narrowing to the bilateral proximal internal carotid arteries (right greater than left). Normal flow direction is appreciated in the bilateral vertebral arteries. RIGHT (cm/s) LEFT (cm/s) ICA peak systolic velocity 80.7 135.0 ICA diastolic velocity 21.2 36.6 ECA peak systolic velocity 126 193 CCA peak systolic velocity 79.5 78.3 ICA/CCA ratio 1.0 1.7 Impression: Moderate to significant focal partially calcified atheromatous plaquing. Narrowing is felt to be approaching the 50% range bilaterally (right greater than left). Electronically Signed by Juan Oliveira MD 03/05/2019 05:51 P
== END ==
LOC: M RAD 17:05
PROVIDERS: ATTEND Ophthalmology
DX: G45.3 Amaurosis fugax (principal)

== ENCOUNTER → 2019-06-15 | Outpatient (REF) | payer MEDICARE, OTHER ==
[~2019-06-15] MED LIST changes: -DIGO0.12 PO; +DIGO0.123 PO; +REPA140I2 SC; -REPA1INJ SC
[2019-06-15 18:14] LABS: HEMATOCRIT 44.8 % (42.0-52.0); HEMOGLOBIN 14.6 g/dl (13.5-17.5); MEAN CORPUSCULAR HEMOGLOBIN 32.7 pg (27.0-33.0); MEAN CORPUSCULAR HGB CONC 32.6 g/dl (32.0-36.5); MEAN CORPUSCULAR VOLUME 100.4 fl (80.0-96.0); PLATELET COUNT, AUTOMATED 169 10^3/uL (150-450); RED BLOOD COUNT 4.46 10^6/uL (4.30-6.10); WHITE BLOOD COUNT 9.4 10^3/uL (4.0-10.0)
[2019-06-15 18:46] LABS: ALBUMIN 3.6 GM/DL (3.2-5.2); ALT/SGPT 22 U/L (12-78); BILIRUBIN,TOTAL 0.5 MG/DL (0.2-1.0); BLOOD UREA NITROGEN 21 MG/DL (7-18); CARBON DIOXIDE LEVEL 31 MEQ/L (21-32); CHLORIDE LEVEL 106 MEQ/L (98-107); CREATININE FOR GFR 1.06 MG/DL (0.70-1.30); GLOMERULAR FILTRATION RATE > 60.0 (>35); GLUCOSE, FASTING 97 MG/DL (70-100); MAGNESIUM LEVEL 2.3 MG/DL (1.8-2.4); POTASSIUM SERUM 5.1 MEQ/L (3.5-5.1); SODIUM LEVEL 141 MEQ/L (136-145); TOTAL PROTEIN 6.7 GM/DL (6.4-8.2)
== END ==
LOC: M SFHCPLAZ 14:11
PROVIDERS: ATTEND Physician Assistant
DX: G47.30 Sleep apnea, unspecified (principal); I10 Essential (primary) hypertension; E03.9 Hypothyroidism, unspecified

== ENCOUNTER → 2019-09-25 | Outpatient (REF) | payer MEDICARE, OTHER ==
[~2019-09-25] MED LIST changes: -ASPI81TA85 PO; +ASPI81TA86 PO; +FINA5TAB2 PO; +LISI-898 PO; +MYRB50TA PO; +VITA200044 PO
[2019-09-25 15:11] LABS: HEMATOCRIT 40.9 % (42.0-52.0); HEMOGLOBIN 13.5 g/dl (13.5-17.5); MEAN CORPUSCULAR HEMOGLOBIN 32.9 pg (27.0-33.0); MEAN CORPUSCULAR VOLUME 99.8 fl (80.0-96.0); PLATELET COUNT, AUTOMATED 158 10^3/uL (150-450); WHITE BLOOD COUNT 8.5 10^3/uL (4.0-10.0)
[2019-09-25 15:20] LABS: INR 1.31; PARTIAL THROMBOPLASTIN TIME 32.8 SECONDS (25.0-38.4)
[2019-09-25 15:39] LABS: ALBUMIN 3.3 GM/DL (3.2-5.2); ALT/SGPT 18 U/L (12-78); BILIRUBIN,TOTAL 0.5 MG/DL (0.2-1.0); BLOOD UREA NITROGEN 23 MG/DL (7-18); CALCIUM LEVEL 8.8 MG/DL (8.8-10.2); CARBON DIOXIDE LEVEL 30 MEQ/L (21-32); CHLORIDE LEVEL 104 MEQ/L (98-107); CREATININE FOR GFR 1.05 MG/DL (0.70-1.30); GLOMERULAR FILTRATION RATE > 60.0 (>35); GLUCOSE, FASTING 97 MG/DL (70-100); POTASSIUM SERUM 4.8 MEQ/L (3.5-5.1); SODIUM LEVEL 138 MEQ/L (136-145); TOTAL PROTEIN 6.2 GM/DL (6.4-8.2)
[2019-09-25 15:45] LABS: FOLATE > 24.0 NG/ML; VITAMIN B12 LEVEL 161 PG/ML
== END ==
LOC: M PLALAB 12:36
PROVIDERS: ATTEND Internal Medicine
DX: G47.30 Sleep apnea, unspecified (principal); I10 Essential (primary) hypertension; E78.00 Pure hypercholesterolemia, unspecified; Z79.01 Long term (current) use of anticoagulants

== ENCOUNTER 2019-12-28 14:12 | Observation (INO) | payer MEDICARE, OTHER ==
[~2019-12-28] VITALS: Ht 180.3 cm; Wt 104.6 kg
[~2019-12-28 14:12] MED LIST changes: -FINA5TAB2 PO; -LISI-898 PO; -MYRB50TA PO; -VITA200044 PO
--- NOTE | 2019-12-28 14:49 | REPVR ---
PROCEDURE INFORMATION: Exam: CT Head Without Contrast Exam date and time: 12/28/2019 2:35 PM Age: 79 years old Clinical indication: Other: CVA; Additional info: CVA - nursing interventions must not delay CT TECHNIQUE: Imaging protocol: Computed tomography of the head without contrast. Radiation optimization: All CT scans at this facility use at least one of these dose optimization techniques: automated exposure control; mA and/or kV adjustment per patient size (includes targeted exams where dose is matched to clinical indication); or iterative reconstruction. Other technique: STROKE PROTOCOL was implemented. COMPARISON: [facility] CT Head without contrast 08/15/2018 4:45 PM FINDINGS: Brain: There is moderate atrophy and chronic white matter microangiopathic changes. Ventricles: There is compensatory ventricular dilation. Bones/joints: Unremarkable. No acute fracture. Paranasal sinuses: Visualized sinuses are unremarkable. No fluid levels. Mastoid air cells: Visualized mastoid air cells are well aerated. Vasculature: The vasculature demonstrates diffuse moderate atherosclerotic calcification. There is a hyperdense MCA on the left. Soft tissues: Unremarkable. IMPRESSION: There is a hyperdense MCA on the left. ASSESSMENT: ASPECTS ([place] Stroke Program Early CT Score) is 10. Electronically signed by: Jason Arteaga On 12/28/2019 14:49:12 PM
[2019-12-28 15:06] LABS: BASO # 0.1 10^3/uL (0.0-0.2); BASO % 0.7 % (0.0-1.0); EOS # 0.2 10^3/uL (0.0-0.5); EOS % 2.8 % (0.0-3.0); HEMATOCRIT 41.3 % (42.0-52.0); HEMOGLOBIN 14.3 g/dl (13.5-17.5); LYMPH # 1.9 10^3/uL (1.5-5.0); LYMPH % 22.1 % (24.0-44.0); MEAN CORPUSCULAR HEMOGLOBIN 33.9 pg (27.0-33.0); MEAN CORPUSCULAR HGB CONC 34.6 g/dl (32.0-36.5); MEAN CORPUSCULAR VOLUME 97.9 fl (80.0-96.0); MONO # 0.8 10^3/uL (0.0-0.8); MONO % 9.6 % (0.0-5.0); NEUTROPHILS # 5.4 10^3/uL (1.5-8.5); NEUTROPHILS % 64.2 % (36.0-66.0); PLATELET COUNT, AUTOMATED 162 10^3/uL (150-450); RED BLOOD COUNT 4.22 10^6/uL (4.30-6.10); WHITE BLOOD COUNT 8.4 10^3/uL (4.0-10.0)
[2019-12-28 15:16] LABS: INR 1.09; PROTHROMBIN TIME 14.4 SECONDS (12.5-14.3)
[2019-12-28] MEDS ORDERED: ISOVUE-370 76% 100ML VIAL As Ordered ONE (15:20)
--- NOTE | 2019-12-28 15:25 | REPVR ---
PROCEDURE INFORMATION: Exam: XR Chest, 1 View Exam date and time: 12/28/2019 3:05 PM Age: 79 years old Clinical indication: Other: Lt arm numbness/weakness; Additional info: CVA TECHNIQUE: Imaging protocol: XR of the chest Views: 1 view. COMPARISON: No relevant prior studies available. FINDINGS: Tubes, catheters and devices: A pacemaker device is present, and its leads are in appropriate position. Limitation: Multiple EKG leads are superimposed on the chest. Lungs: Unremarkable. No consolidation. Pleural space: Unremarkable. No pleural effusion. No pneumothorax. Heart/Mediastinum: The heart demonstrates mild diffuse enlargement. Vasculature: The vasculature demonstrates diffuse mild atherosclerotic calcification. Bones/joints: Unremarkable. Soft tissues: No evidence of an acute chest abnormality. IMPRESSION: No evidence of an acute chest abnormality. Electronically signed by: Jason Arteaga On 12/28/2019 15:25:08 PM
--- NOTE | 2019-12-28 15:48 | REPVR ---
PROCEDURE INFORMATION: Exam: CT Angiography Head With Contrast Exam date and time: 12/28/2019 3:17 PM Age: 79 years old Clinical indication: Weakness; Additional info: L arm numb/weak resolved TECHNIQUE: Imaging protocol: Computed tomography angiography of the head with intravenous contrast. 3D rendering (Not supervised by radiologist): MIP and/or 3D reconstructed images were created by the technologist. Radiation optimization: All CT scans at this facility use at least one of these dose optimization techniques: automated exposure control; mA and/or kV adjustment per patient size (includes targeted exams where dose is matched to clinical indication); or iterative reconstruction. Contrast material: ISOVUE 370; Contrast volume: 100 ml; Contrast route: INTRAVENOUS (IV); COMPARISON: CT Head without contrast 12/28/2019 2:32 PM FINDINGS: ANTERIOR CIRCULATION: Right internal carotid artery: Unremarkable. Intracranial segment is patent with no significant stenosis. No aneurysm. Right middle cerebral artery: Unremarkable. No occlusion or significant stenosis. No aneurysm. Right anterior cerebral artery: Unremarkable. No occlusion or significant stenosis. No aneurysm. Left internal carotid artery: Unremarkable. Intracranial segment is patent with no significant stenosis. No aneurysm. Left middle cerebral artery: Unremarkable. No occlusion or significant stenosis. No aneurysm. Left anterior cerebral artery: Unremarkable. No occlusion or significant stenosis. No aneurysm. POSTERIOR CIRCULATION: Right vertebral artery: Unremarkable. No occlusion or significant stenosis. No aneurysm. Left vertebral artery: There is a dominant left vertebral artery with moderate calcification the foramen magnum on axial image 5 with about 50% stenosis suspected the. Basilar artery: Unremarkable. No occlusion or significant stenosis. No aneurysm. Right posterior cerebral artery: Unremarkable. No occlusion or significant stenosis. No aneurysm. Left posterior cerebral artery: Unremarkable. No occlusion or significant stenosis. No aneurysm. Brain: No definite mass, mass effect, or midline shift. Cerebral ventricles: Normal. No ventriculomegaly. Bones/joints: Unremarkable. No acute fracture. Soft tissues: Unremarkable. IMPRESSION: 1. There is no intracranial large vessel occlusion. 2. There is a dominant left vertebral artery with moderate calcification the foramen magnum on axial image 5 with about 50% stenosis suspected the. Electronically signed by: Jason Arteaga On 12/28/2019 15:47:54 PM
[2019-12-28 15:50] LABS: BLOOD UREA NITROGEN 21 MG/DL (7-18); CALCIUM LEVEL 9.1 MG/DL (8.8-10.2); CARBON DIOXIDE LEVEL 27 MEQ/L (21-32); CHLORIDE LEVEL 107 MEQ/L (98-107); CK-MB VALUE MASS 3.1 NG/ML (<3.6); CPK CREATINE PHOSPHOKINASE 107 U/L (39-308); CREATININE FOR GFR 0.95 MG/DL (0.70-1.30); DIGOXIN LEVEL 0.4 NG/ML (0.5-2.0); GLOMERULAR FILTRATION RATE > 60.0 (>35); GLUCOSE, FASTING 100 MG/DL (70-100); POTASSIUM SERUM 4.5 MEQ/L (3.5-5.1); SODIUM LEVEL 140 MEQ/L (136-145); TROPONIN I < 0.02 NG/ML (< 0.10)
--- NOTE | 2019-12-28 15:51 | REPVR ---
PROCEDURE INFORMATION: Exam: CT Angiography Neck With Contrast Exam date and time: 12/28/2019 3:17 PM Age: 79 years old Clinical indication: Weakness; Additional info: L arm numb/weak resolved TECHNIQUE: Imaging protocol: Computed tomography angiography of the neck with intravenous contrast. 3D rendering (Not supervised by radiologist): MIP and/or 3D reconstructed images were created by the technologist. Radiation optimization: All CT scans at this facility use at least one of these dose optimization techniques: automated exposure control; mA and/or kV adjustment per patient size (includes targeted exams where dose is matched to clinical indication); or iterative reconstruction. Contrast material: ISOVUE 370; Contrast volume: 100 ml; Contrast route: INTRAVENOUS (IV); COMPARISON: No relevant prior studies available. FINDINGS: Right common carotid artery: No stenosis. No dissection or occlusion. Right internal carotid artery: There is mild calcification of the right internal carotid origin with less than 50% compromise of the lumen. There is moderate calcification of the carotid siphons. Right external carotid artery: No occlusion or stenosis of the origin. Right vertebral artery: No stenosis. No dissection or occlusion. Left common carotid artery: No stenosis. No dissection or occlusion. Left internal carotid artery: There is moderate calcification of the left internal carotid origin with less than 50% compromise of the lumen. Left external carotid artery: No occlusion or stenosis of the origin. Left vertebral artery: There is a dominant left vertebral artery with no evidence of stenosis or dissection. Other vasculature: The vasculature demonstrates diffuse moderate atherosclerotic calcification. Bones/joints: No acute fracture. Soft tissues: Normal. No significant soft tissue swelling. Lungs: The visualized portions of the lung apices are normal. Other findings: Limitation: Breathing is noted on these images limiting the interpretation. IMPRESSION: 1. There is mild calcification of the right internal carotid origin with less than 50% compromise of the lumen. 2. There is moderate calcification of the left internal carotid origin with less than 50% compromise of the lumen. 3. There is a dominant left vertebral artery with no evidence of stenosis or dissection. REFERENCES: NASCET CRITERIA. The degree of internal carotid artery stenosis is based on NASCET criteria. Normal is no stenosis. Mild is less than 50% stenosis. Moderate is 50-69% stenosis. Severe is 70% to 99% stenosis. Total occlusion is no detectable patent lumen. Electronically signed by: Jason Arteaga On 12/28/2019 15:51:20 PM
[2019-12-28] MEDS ORDERED: MYRB50TA PO (17:48)
[2019-12-28] MEDS ORDERED: LISI-542 PO (17:48)
[2019-12-28] MEDS ORDERED: FINA5TAB2 PO (17:48)
[2019-12-28] MEDS ORDERED: VITA200044 PO (17:48)
--- NOTE | 2019-12-28 17:48 | HPEPDOC ---
[facility] Medical History & Physical Date of Admission Dec 28, 2019 Date of Service: Dec 28, 2019 History and Physical CHIEF COMPLAINT: transient left arm numbness HISTORY OF PRESENT ILLNESS: 79 yo M with a hx of Afib (on AC), pacemaker, diastolic CHF, bladder ca, TIA, presenting to [facility] ED c/o 15 min period of L arm numbness and weakness while washing his car. He could not keep his arm elevated above his head. He regained complete use of his LUE and decided to come to ED for workup. He denies vision changes, headache, n/v/d, chest pain, fall or syncope. PAST MEDICAL HISTORY: Afib (on AC) diastolic CHF Hypothyroidism BPH Bladder ca hypercholesterolemia TIA 03/2018, 08/2018 PAST SURGICAL HISTORY: TONSILLECTOMY BILATERAL RETINAL DETACHMENT REPAIRS 1983 LEFT INGUINAL HERNIA REPAIR 06/16. 06/2007 COLONOSCOPY 10/2008 RIGHT INGUINAL HERNIA REPAIR 12/18. 12/2008 BILATERAL CATARACT EXTRACTIONS 07/2009 REPAIR OF ABDOMINAL AORTIC ANEURYSM AND BILATERAL COMMON ILIAC ARTERY ANEURYSMS WITH AORTA BI-INTERNAL ILIAC ARTERY BYPASS GRAFT AND AORTA TO EXTERNAL ILIAC ARTERY BYPASS GRAFT ON 07/06/2010 AT THE [facility]. 07/06/10 RIGHT ILIAC ARTERY STENT 02/18/2011. 02/18/2011 PACEMAKER 08/04/11 [facility], 3 CARDIAC STENTS PLACED WITH ANGIOPLASTY AND ABLATION, DR. 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 ESCOTO 07/12/2017 TURBT AND CIRCUMCISION 06/12/2018 SOCIAL HISTORY: denies smoking denies etoh use denies illicit drug FAMILY HISTORY: Father - [place], age 78 Mother - colon cancer,peritonitis, Age 78 ALLERGIES: Please see below. REVIEW OF SYSTEMS: CONSTITUTIONAL: denies fevers, chills HEENT: denies blurred vision CARDIOVASCULAR: denies chest pain, denies palpitation RESPIRATORY: denies shortness of breath, denies wheeze. GASTROINTESTINAL: denies abdominal pain, denies n/v/d/c. GENITOURINARY: denies dysuria. SKIN: denies bruising. MUSCULOSKELETAL: denies joint paint. NEUROLOGICAL: reports transient LUE weakness and numbness, now resolved, denies active focal weakness, falls, sezures. PSYCHIATRIC: denies SI. HOME MEDICATIONS: Please see below. PHYSICAL EXAMINATION: VITAL SIGNS: please see below GENERAL APPEARANCE: comfortable in bed, non toxic appearance. HEENT: PERRLA, EOMI. Xanthelasma noted CARDIOVASCULAR: RRR, normal S1, S2. LUNGS: CTAB, no wheeze. ABDOMEN: soft, non tender, no masses MUSCULOSKELETAL: no joint deformity EXTREMITIES: venous stasis changes, dry skin, no edema. NEUROLOGICAL: no focal neuro findings, 5/5 strength in all 4 extremities. CN 2- 12 intact. PSYCHIATRIC: calm, cooperative LABORATORY DATA: See below. IMAGING: Head CT: IMPRESSION: There is a hyperdense MCA on the left. CTA neck: IMPRESSION: 1. There is mild calcification of the right internal carotid origin with less than 50% compromise of the lumen. 2. There is moderate calcification of the left internal carotid origin with less than 50% compromise of the lumen. 3. There is a dominant left vertebral artery with no evidence of stenosis or dissection. CTA Head IMPRESSION: 1. There is no intracranial large vessel occlusion. 2. There is a dominant left vertebral artery with moderate calcification the foramen magnum on axial image 5 with about 50% stenosis suspected the. CXR: IMPRESSION: No evidence of an acute chest abnormality. MICROBIOLOGY: Please see below. ASSESSMENT: 79 yo M with a hx of Afib (on AC), CHF, bladder ca, HLD, TIA, presenting to [facility] ED c/o 15 min period of L arm numbness and weakness while washing his car. He could not keep his arm elevated above his head. He regained complete use of his LUE and decided to come to ED for workup. He denies vision changes, headache, n/v/d, chest pain, fall or syncope. PLAN: TIA - CT showing no acute bleed or ischemia - CTA head and neck showing no occlusion, less than 50% stenosis due to calcification in the L and R carotids - unable to perform MRI due to pacemaker - 3rd TIA on eliquis, likely due to severe hypercholesterolemia - c/w ASA - c/w eliquis - patient does not take statin as causes severe cramping - neurology consult, discussed with Dr. Shukla - obtain CT c-spine wo contrast Afib - rate controlled - c/w home digoxin 0.125 mg T,Th,Sat,Tue - pacemaker in 2011 HLD - not on statin - per med rec reports terrible cramping? - takes phyllis solomon - check lipid panel Hypothyrodism - cw home levothyroxine 75 mcg - check tsh, FT4 GERD - protonix daily BPH - c/w home flomax 0.4 mg qpm, finasteride 5 mg PO daily Bladder Ca - follows with urology outpatient Overactive bladder - myrbetriq at home - follows with urology DVT ppx: eliquis Dispo: admit for obs, pending medical clearance, expect DC home. PT/OT eval. Vital Signs Vital Signs Date Time Temp Pulse Resp B/P (MAP) Pulse Ox O2 Delivery O2 Flow Rate FiO2 12/28/19 15:49 178/88 (118) 12/28/19 14:13 98.7 89 16 97 Room Air Laboratory Data Labs 24H Laboratory Tests 2 12/28/19 14:54: Immature Granulocyte % (Auto) 0.6, Neutrophils (%) (Auto) 64.2, Lymphocytes (%) (Auto) 22.1L, Monocytes (%) (Auto) 9.6H, Eosinophils (%) (Auto) 2.8, Basophils (%) (Auto) 0.7, Neutrophils # (Auto) 5.4, Lymphocytes # (Auto) 1.9, Monocytes # (Auto) 0.8, Eosinophils # (Auto) 0.2, Basophils # (Auto) 0.1, Nucleated Red Blood Cells % (auto) 0.0, Prothrombin Time 14.4H, Prothromb Time International Ratio 1.09, Activated Partial Thromboplast Time 33.0, Anion Gap 6L, Glomerular Filtration Rate > 60.0, Calcium Level 9.1, Total Creatine Kinase 107, Creatine Kinase MB 3.1, Creatine Kinase MB Relative Index 2.90, Troponin I < 0.02, Digoxin Level 0.4L 12/28/19 15:13: POC Glucose (Misc Panel) 101, POC Sodium (Misc Panel) 140, POC Potassium (Misc Panel) 4.2, POC Chloride (Misc Panel) 103, POC Total CO2 (Misc Panel) 26.0, POC Blood Urea Nitrogen (Misc Panel 22, POC Ionized Calcium (Misc Panel) 4.6, POC Creatinine (Misc Panel) 0.9, POC Hematocrit (Misc Panel) 41.0 CBC/BMP Laboratory Tests 12/28/19 14:54 Home Medications Scheduled Apixaban (Eliquis) 5 Mg Tablet, 5 MG PO BID Aspirin (Aspir 81) 81 Mg Tablet.dr, 81 MG PO DAILY Carboxymethyl/Glycerin/Poly80 (Refresh Optive Advanced Drops) 10 Ml Drops, 1 DROP OU QID Cholecalciferol (Vitamin D3) (Vitamin D3) 50 Mcg Capsule, 50 MCG PO DAILY Clobetasol Propionate (Clobetasol Propionate) 0.05% 118ML Shampoo, 1 APPLIC TOP 2XWK APPLY TO DRY SCALP Digoxin (Digoxin) 125 Mcg Tablet, 125 MCG PO 4XWK TAKES ON TUESDAY, TUESDAY, TUESDAY AND TUESDAY Esomeprazole Magnesium (Esomeprazole Magnesium) 40 Mg Capsule.dr, 40 MG PO QHS Evolocumab (Repatha Sureclick) 140 Mg/1 Ml Pen.injctr, 140 MG SC Q2WK Finasteride (Finasteride) 5 Mg Tablet, 5 MG PO DAILY Glucosa Campa 2Kcl/Chondroitin Campa (Glucosamine & Chondroitin Cap) 1 Each Capsule, 1 EACH PO DAILY Icosapent Ethyl (Vascepa) 1 Gm Capsule, 1 GM PO BID Levothyroxine Sodium (Synthroid) 75 Mcg Tablet, 75 MCG PO DAILY Lisinopril (Lisinopril) 5 Mg Tablet, 5 MG PO BID HOLD IF BP IS 110/ 70 Mirabegron (Myrbetriq) 50 Mg Tab.er.24h, 50 MG PO DAILY Tamsulosin HCl (Flomax) 0.4 Mg Capsule, 0.4 MG PO QPM TAKES 1/2 HOUR AFTER DINNER Vit C/E/Zn/Coppr/Lutein/Zeaxan (Preservision Areds 2 Softgel) 1 Each Capsule, 1 EACH PO BID Scheduled PRN Carboxymethylcellulos/Glycerin (Refresh Optive Gel Eye Drops) 10 Ml Drops.gel, 1 DROP OU QHS PRN for DRY EYES Nitroglycerin (Nitrostat) 0.4 Mg Tab.subl, 0.4 MG SL NITRO PRN for CHEST PAIN Allergies Coded Allergies: [id number] Reductase Inhibitor (Verified Allergy, Unknown, CRAMPING , 08/13/18) diazepam (Verified Allergy, Unknown, MAKES PSYCOTIC , 08/13/18) A-FIB/CHADSVASC A-FIB History Current/History of A-Fib/PAF?: Yes Current PO Anticoag Therapy: Yes SEVERO LEES MD Dec 28, 2019 17:48
[2019-12-28] MEDS ORDERED: TAMSULOSIN 0.4 MG CAP PO SCH (18:00)
--- NOTE | 2019-12-28 18:53 | REPVR ---
PROCEDURE INFORMATION: Exam: CT Cervical Spine Without Contrast Exam date and time: 12/28/2019 5:58 PM Age: 79 years old Clinical indication: Other: Suspected TIA, L arm numbness TECHNIQUE: Imaging protocol: Computed tomography images of the cervical spine without contrast. Radiation optimization: All CT scans at this facility use at least one of these dose optimization techniques: automated exposure control; mA and/or kV adjustment per patient size (includes targeted exams where dose is matched to clinical indication); or iterative reconstruction. COMPARISON: CT ANGIO NECK 12/28/2019 3:20 PM FINDINGS: Vertebrae: No traumatic segmental malalignment of cervical spine or craniocervical junction. Vertebral body height is maintained at all levels. No acute fracture. No destructive or blastic cervical spine osseous lesion. Disc spaces: Intervertebral disc height is decreased at multiple levels, with typical degenerative pattern and associated endplate, articular pillar and uncovertebral spurs. Moderate spinal canal stenosis C5-C6 and C6-C7 secondary to vertebral osteophytes. Osseous neural foraminal stenoses are moderately severe at C6-C7 and C5-C6 Prevertebral Space: Prevertebral soft tissues demonstrate no asymmetry. Lungs: No concerning abnormality of the imaged lung apices. IMPRESSION: 1. No acute fracture or traumatic subluxation of the cervical spine. 2. Multilevel degenerative disc and articular pillar arthropathy. Electronically signed by: Jt Shabazz On 12/28/2019 18:53:09 PM
[2019-12-28] MEDS ORDERED: NITROGLYCERIN 0.4 MG SUBL TABLET SL PRN (19:00)
[2019-12-28 20:30] VITALS: BP 167/81
[2019-12-28] MEDS: APIXABAN 5 MG TAB (ELIQUIS) PO SCH (20:46)
[2019-12-28] MEDS: lisinopriL 5 MG TAB PO SCH (20:46)
[2019-12-29 06:00] VITALS: BP 116/64
[2019-12-29] MEDS ORDERED: LEVOTHYROXINE 75MCG TABLET (0.075MG) PO SCH (06:00)
[2019-12-29 08:49] LABS: BASO # 0.1 10^3/uL (0.0-0.2); BASO % 0.7 % (0.0-1.0); EOS # 0.2 10^3/uL (0.0-0.5); EOS % 3.3 % (0.0-3.0); HEMATOCRIT 41.8 % (42.0-52.0); LYMPH # 1.3 10^3/uL (1.5-5.0); MEAN CORPUSCULAR HGB CONC 33.5 g/dl (32.0-36.5); MEAN CORPUSCULAR VOLUME 98.6 fl (80.0-96.0); MONO # 0.7 10^3/uL (0.0-0.8); MONO % 9.1 % (0.0-5.0); NEUTROPHILS % 68.4 % (36.0-66.0); PLATELET COUNT, AUTOMATED 156 10^3/uL (150-450); RED BLOOD COUNT 4.24 10^6/uL (4.30-6.10); WHITE BLOOD COUNT 7.3 10^3/uL (4.0-10.0)
[2019-12-29 08:51] LABS: ALT/SGPT 16 U/L (12-78); BLOOD UREA NITROGEN 18 MG/DL (7-18); CALCIUM LEVEL 8.8 MG/DL (8.8-10.2); CARBON DIOXIDE LEVEL 28 MEQ/L (21-32); CHLORIDE LEVEL 106 MEQ/L (98-107); CREATININE FOR GFR 0.99 MG/DL (0.70-1.30); GLOMERULAR FILTRATION RATE > 60.0 (>35); GLUCOSE, FASTING 119 MG/DL (70-100); POTASSIUM SERUM 4.2 MEQ/L (3.5-5.1); SODIUM LEVEL 141 MEQ/L (136-145)
[2019-12-29 08:52] LABS: ALBUMIN 3.1 GM/DL (3.2-5.2); BILIRUBIN,TOTAL 0.6 MG/DL (0.2-1.0); CHOLESTEROL LEVEL 116 MG/DL (<200); CHOLESTEROL RISK RATIO 2.761 (<5); HDL CHOLESTEROL 42 MG/DL (>40); LDL CHOLESTEROL 47 MG/DL (<100); MAGNESIUM LEVEL 2.1 MG/DL (1.8-2.4); NON-HDL-C 74 MG/DL; TOTAL PROTEIN 6.1 GM/DL (6.4-8.2); TRIGLYCERIDES LEVEL 134 MG/DL (<150)
[2019-12-29] MEDS ORDERED: FINASTERIDE 5 MG TAB PO SCH (09:00)
[2019-12-29] MEDS ORDERED: ASPIRIN 81 MG ENTERIC TAB PO SCH (09:00)
[2019-12-29] MEDS ORDERED: PANTOPRAZOLE 40MG TAB (PROTONIX) PO SCH (09:00)
[2019-12-29] MEDS ORDERED: DIGOXIN 0.125 MG TAB PO SCH (09:00)
[2019-12-29] MEDS: APIXABAN 5 MG TAB (ELIQUIS) PO SCH (10:16)
[2019-12-29 10:17] VITALS: BP 107/77
[2019-12-29] MEDS: lisinopriL 5 MG TAB PO SCH (10:17)
--- NOTE | 2019-12-29 12:05 | ECGEPIP ---
[facility] - ED Test Date: 2019-12-28 Pat Name: ZACHARY AMARO Department: Room: - Gender: Male Research Physician: : [id number] Requested By: JAY Castillo Order Number: [id number] Reading MD: Josep Pak Measurements Intervals Blair Rate: 87 P: MN: 0 QRS: -25 QRSD: 91 T: 30 QT: 366 QTc: 442 Interpretive Statements ATRIAL FIBRILLATION WITH ABERRANT CONDUCTION OR VENTRICULAR PREMATURE COMPLEXES BORDERLINE LEFT AXIS DEVIATION POOR R WAVE PROGRESSION INCOMPLETE RIGHT BUNDLE BRANCH BLOCK SIMILAR TO 08/13/18 Electronically Signed on 12-29-2019 12:04:35 EDT by Josep Pak
--- NOTE | 2019-12-29 14:06 | DS.PDOC ---
Discharge Summary General Date of Admission Dec 28, 2019 at 14:13 Date of Discharge 12/29/19 Primary Care Physician: Abilio Wagner Attending Physician: SEVERO LEES MD Specialist/Consultants Involve: Brandon Souza Discharge Summary PROCEDURES PERFORMED DURING STAY: [None]. ADMITTING DIAGNOSES: TIA Chronic Afib HLD Hypothyroidism GERD BPH Bladder Ca Overactive Bladder DISCHARGE DIAGNOSES: Cervical foraminal stenosis Cervical radiculopathy Hx of TIA Chronic Afib HLD Hypothyroidism GERD BPH Bladder Ca Overactive Bladder COMPLICATIONS/CHIEF COMPLAINT: TIA. HISTORY OF PRESENT ILLNESS: 79 yo M with a hx of Afib (on AC), pacemaker, diastolic CHF, bladder ca, TIA, presenting to [facility] ED c/o 15 min period of L arm numbness and weakness while washing his car. He could not keep his arm elevated above his head. He regained complete use of his LUE and decided to come to ED for workup. He denies vision changes, headache, n/v/d, chest pain, fall or syncope. HOSPITAL COURSE: LUE weakness/numbness 2/2 C spine foraminal stenosis - CT showing no acute bleed or ischemia - CTA head and neck showing no occlusion, less than 50% stenosis due to calcification in the L and R carotids - unable to perform MRI due to pacemaker - during admission, patient had a similar episode where he felt weakness and numbness in the the distribution of C5-C7 dermatome/myotome of his LUE, which resolved after a few minutes - f/u repeat echo as outpatient, performed 12/29/19 - c/w ASA - c/w eliquis - patient does not take statin as causes severe cramping - neurology consult, discussed with Dr. Shukla - obtain CT c-spine wo contrast - showing moderate spinal canal stenosis C5-C6, and C6-C7 secondary to vertebral osteophytes. Osseus neural foraminal stenoses are moderately severe at C6-C7 and C5-C6. - Suspect that the symptoms on admission were due to spinal canal stenosis rather than TIA - outpatient follow up for EMG studies with neurology Afib - rate controlled - c/w home digoxin 0.125 mg T,Th,Sat,Sun - pacemaker in 2011 HLD - not on statin - per med rec reports terrible cramping? - takes phyllis solomon - check lipid panel - LDL 47, HDL 42. Hypothyrodism - cw home levothyroxine 75 mcg GERD - protonix daily BPH - c/w home flomax 0.4 mg qpm, finasteride 5 mg PO daily Bladder Ca - follows with urology outpatient Overactive bladder - myrbetriq at home - follows with urology DISCHARGE MEDICATIONS: Please see below. ALLERGIES: Please see below. PHYSICAL EXAMINATION ON DISCHARGE: VITAL SIGNS: Please see below. GENERAL APPEARANCE: comfortable in bed, non toxic appearance. HEENT: PERRLA, EOMI. Xanthelasma noted CARDIOVASCULAR: RRR, normal S1, S2. LUNGS: CTAB, no wheeze. ABDOMEN: soft, non tender, no masses MUSCULOSKELETAL: no joint deformity EXTREMITIES: venous stasis changes, dry skin, no edema. NEUROLOGICAL: no focal neuro findings, 5/5 strength in all 4 extremities. CN 2- 12 intact. PSYCHIATRIC: calm, cooperative LABORATORY DATA: Please see below. IMAGING: Head CT: IMPRESSION: There is a hyperdense MCA on the left. CTA neck: IMPRESSION: 1. There is mild calcification of the right internal carotid origin with less than 50% compromise of the lumen. 2. There is moderate calcification of the left internal carotid origin with less than 50% compromise of the lumen. 3. There is a dominant left vertebral artery with no evidence of stenosis or dissection. CTA Head IMPRESSION: 1. There is no intracranial large vessel occlusion. 2. There is a dominant left vertebral artery with moderate calcification the foramen magnum on axial image 5 with about 50% stenosis suspected the. CXR: IMPRESSION: No evidence of an acute chest abnormality. CT c-spine wo contrast: FINDINGS: Vertebrae: No traumatic segmental malalignment of cervical spine or craniocervical junction. Vertebral body height is maintained at all levels. No acute fracture. No destructive or blastic cervical spine osseous lesion. Disc spaces: Intervertebral disc height is decreased at multiple levels, with typical degenerative pattern and associated endplate, articular pillar and uncovertebral spurs. Moderate spinal canal stenosis C5-C6 and C6-C7 secondary to vertebral osteophytes. Osseous neural foraminal stenoses are moderately severe at C6-C7 and C5-C6 Prevertebral Space: Prevertebral soft tissues demonstrate no asymmetry. Lungs: No concerning abnormality of the imaged lung apices. IMPRESSION: 1. No acute fracture or traumatic subluxation of the cervical spine. 2. Multilevel degenerative disc and articular pillar arthropathy. PROGNOSIS: good ACTIVITY: As tolerated, uses cane at home DIET: 2G Na DISCHARGE PLAN: follow up with PCP and neurologist DISPOSITION: DC home DISCHARGE INSTRUCTIONS: 1. PLEASE FOLLOW UP WITH YOUR PRIMARY CARE DOCTOR WITHIN 3-5 DAYS 2. PLEASE FOLLOW UP WITH NEUROLOGY WITHIN 2 WEEKS 3. PLEASE TAKE YOUR MEDICATIONS PRESCRIBED 4. IF YOU DEVELOP WEAKNESS IN A BODY PART, VISION CHANGES, CHEST PAIN, SHORTNESS OF BREATH, FEVERS, CHILLS, BLEEDING OR OTHERWISE WORSENING FO YOUR SYMPTOMS, PLEASE CALL 911 OR RETURN TO THE EMERGENCY DEPARTMENT. ITEMS TO FOLLOWUP ON ON OUTPATIENT: 1. F/u neurology 2 weeks for EMG 2. F/u repeat echo performed on 12/29/19 DISCHARGE CONDITION: Stable TIME SPENT ON DISCHARGE: Greater than 30 minutes. Vital Signs/I&Os Vital Signs Date Time Temp Pulse Resp B/P (MAP) Pulse Ox O2 Delivery O2 Flow Rate FiO2 12/29/19 10:17 81 12/29/19 10:17 107/77 12/29/19 06:00 97.8 18 94 Room Air I&O- Last 24 Hours up to 6 AM 12/29/19 06:00 Intake Total 0 ml Output Total 1225 ml Balance -1225 ml Laboratory Data Labs 24H Laboratory Tests 2 12/28/19 14:54: Immature Granulocyte % (Auto) 0.6, Neutrophils (%) (Auto) 64.2, Lymphocytes (%) (Auto) 22.1L, Monocytes (%) (Auto) 9.6H, Eosinophils (%) (Auto) 2.8, Basophils (%) (Auto) 0.7, Neutrophils # (Auto) 5.4, Lymphocytes # (Auto) 1.9, Monocytes # (Auto) 0.8, Eosinophils # (Auto) 0.2, Basophils # (Auto) 0.1, Nucleated Red Blood Cells % (auto) 0.0, Prothrombin Time 14.4H, Prothromb Time International Ratio 1.09, Activated Partial Thromboplast Time 33.0, Anion Gap 6L, Glomerular Filtration Rate > 60.0, Calcium Level 9.1, Total Creatine Kinase 107, Creatine Kinase MB 3.1, Creatine Kinase MB Relative Index 2.90, Troponin I < 0.02, Digoxin Level 0.4L 12/28/19 15:13: POC Glucose (Misc Panel) 101, POC Sodium (Misc Panel) 140, POC Potassium (Misc Panel) 4.2, POC Chloride (Misc Panel) 103, POC Total CO2 (Misc Panel) 26.0, POC Blood Urea Nitrogen (Misc Panel 22, POC Ionized Calcium (Misc Panel) 4.6, POC Creatinine (Misc Panel) 0.9, POC Hematocrit (Misc Panel) 41.0 12/29/19 07:44: Immature Granulocyte % (Auto) 0.5, Neutrophils (%) (Auto) 68.4H, Lymphocytes (%) (Auto) 18.0L, Monocytes (%) (Auto) 9.1H, Eosinophils (%) (Auto) 3.3H, Basophils (%) (Auto) 0.7, Neutrophils # (Auto) 5.0, Lymphocytes # (Auto) 1.3L, Monocytes # (Auto) 0.7, Eosinophils # (Auto) 0.2, Basophils # (Auto) 0.1, Nucleated Red Blood Cells % (auto) 0.0, Anion Gap 7L, Glomerular Filtration Rate > 60.0, Calcium Level 8.8, Magnesium Level 2.1, Total Bilirubin 0.6, Aspartate Amino Transf (AST/SGOT) 16, Alanine Aminotransferase (ALT/SGPT) 16, Alkaline Phosphatase 73, Total Protein 6.1L, Albumin 3.1L, Albumin/Globulin Ratio 1.0, Triglycerides Level 134, Total Cholesterol 116, LDL Cholesterol 47, Non-HDL Cholesterol (LDL + VLDL) 74, Total HDL Cholesterol 42, Cholesterol/HDL Ratio 2.761 CBC/BMP Laboratory Tests 12/28/19 14:54 12/29/19 07:44 Discharge Medications Scheduled Apixaban (Eliquis) 5 Mg Tablet, 5 MG PO BID, (Reported) Aspirin (Aspir 81) 81 Mg Tablet.dr, 81 MG PO DAILY, (Reported) Carboxymethyl/Glycerin/Poly80 (Refresh Optive Advanced Drops) 10 Ml Drops, 1 DROP OU QID, (Reported) Cholecalciferol (Vitamin D3) (Vitamin D3) 50 Mcg Capsule, 50 MCG PO DAILY, (Reported) Clobetasol Propionate (Clobetasol Propionate) 0.05% 118ML Shampoo, 1 APPLIC TOP 2XWK, (Reported) APPLY TO DRY SCALP Digoxin (Digoxin) 125 Mcg Tablet, 125 MCG PO 4XWK, (Reported) TAKES ON TUESDAY, TUESDAY, TUESDAY AND TUESDAY Esomeprazole Magnesium (Esomeprazole Magnesium) 40 Mg Capsule.dr, 40 MG PO QHS, (Reported) Evolocumab (Repatha Sureclick) 140 Mg/1 Ml Pen.injctr, 140 MG SC Q2WK, (Reported) Finasteride (Finasteride) 5 Mg Tablet, 5 MG PO DAILY, (Reported) Glucosa Campa 2Kcl/Chondroitin Campa (Glucosamine & Chondroitin Cap) 1 Each Capsule, 1 EACH PO DAILY, (Reported) Icosapent Ethyl (Vascepa) 1 Gm Capsule, 1 GM PO BID, (Reported) Levothyroxine Sodium (Synthroid) 75 Mcg Tablet, 75 MCG PO DAILY, (Reported) Lisinopril (Lisinopril) 5 Mg Tablet, 5 MG PO BID, (Reported) HOLD IF BP IS 110/ 70 Mirabegron (Myrbetriq) 50 Mg Tab.er.24h, 50 MG PO DAILY, (Reported) Tamsulosin HCl (Flomax) 0.4 Mg Capsule, 0.4 MG PO QPM, (Reported) TAKES 1/2 HOUR AFTER DINNER Vit C/E/Zn/Coppr/Lutein/Zeaxan (Preservision Areds 2 Softgel) 1 Each Capsule, 1 EACH PO BID, (Reported) Scheduled PRN Carboxymethylcellulos/Glycerin (Refresh Optive Gel Eye Drops) 10 Ml Drops.gel, 1 DROP OU QHS PRN for DRY EYES, (Reported) Nitroglycerin (Nitrostat) 0.4 Mg Tab.subl, 0.4 MG SL NITRO PRN for CHEST PAIN, (Reported) Allergies Coded Allergies: Jhaewxb-Npl-Rju Reductase Inhibitor (Verified Allergy, Unknown, CRAMPING , 08/13/18) diazepam (Verified Allergy, Unknown, MAKES PSYCOTIC , 08/13/18) SEVERO LEES MD Dec 29, 2019 14:06
--- NOTE | 2020-01-02 07:17 | ECHO ---
DATE OF PROCEDURE: 12/29/2019 Height: 178 cm Weight: 98 kg REFERRING PHYSICIAN: Dr. Fito Horne INDICATION: Transient ischemic attack (TIA). MEASUREMENTS: IV is 1.3 LV 4.5 LVPW 1.0 LA 5.0 Aorta 3.9 RV 2.9 IVC 1.3 FINDINGS: This study is of fair technical quality with fairly limited visualization. The patient is in atrial fibrillation with controlled rate. Left ventricle is normal size and has overall preserved systolic function. I estimate ejection fraction (EF) 60 to 65%. Mild left ventricular hypertrophy is present. Right ventricle appears mildly dilated. There is severe biatrial enlargement. Echo artifact is apparent in right-sided heart chambers, most likely representing pacemaker lead. Aortic valve is mildly sclerotic, but has 3 cusps and preserved mobility. Mitral and tricuspid valves appear normal. Pulmonic valve was not well visualized. Trivial pericardial effusion is present. Inferior vena cava is relatively small size indicative of normal central venous pressure. Aortic root is borderline dilated at 3.9 cm. Aortic arch and abdominal aorta were not well seen. Doppler interrogation of aortic valve reveals no significant stenosis or insufficiency, same applies for mitral valve and tricuspid valve. Evaluation of diastolic function is inconclusive due to underlying atrial fibrillation. Injection of agitated saline through peripheral valve did not produce visible bubbles in right-sided chambers and consequently I cannot comment whether there was any evidence for intracardiac shunt. CONCLUSIONS: 1. Study is of fair technical quality. 2. Normal LV size with mild left ventricular hypertrophy (LVH) and preserved LV systolic function. 3. Dilated right ventricle. 4. Severe biatrial enlargement. 5. Pacemaker lead in right-sided heart chambers. 6. No significant valvular disease. 7. Likely normal central venous pressure, under to estimate pulmonary artery pressure. 8. Borderline dilated aortic root (3.9 cm) 9. Poor quality bubble study, I cannot make conclusions whether intracardiac shunt is present. [facility]
--- NOTE | 2020-01-10 14:55 | CR ---
DATE OF CONSULTATION: 12/29/2019 REFERRING PHYSICIAN: Dr. Brant Leblanc. REASON FOR CONSULTATION: Left arm numbness and weakness transiently. HISTORY OF PRESENT ILLNESS: The patient is an 79-year-old man with a history of atrial fibrillation, pacemaker placement, diastolic congestive heart failure, bladder carcinoma, and TIA who presented to [facility] with episode of left arm numbness and weakness when he was painting a door. He was trying to open a can of paint when he felt his left arm felt funny, and he had to use force to open the can. He felt his left arm felt weak. Numbness went up his left arm. It lasted for five minutes. During the night when he was holding something in both hands, he felt his left hand again became numb and tingly affecting medial three fingers of left hand. This lasted for a couple of minutes. He denies any headaches, neck pain, back pain, dysphagia, dysarthria, diplopia, urinary incontinence, trouble with his speech, left-sided face, or left leg during his episodes yesterday. PAST MEDICAL/SURGICAL HISTORY: 1. Atrial fibrillation. 2. Hypothyroidism. 3. Prostate enlargement. 4. Bladder cancer. 5. Dyslipidemia. 6. TIA. 7. Tonsillectomy. 8. Retinal detachment repair. 9. Inguinal hernia repair. 10. Cataract extraction. 11. 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 12. Pacemaker placement. 13. Basal cell carcinoma resection on his back. SOCIAL HISTORY: He denies smoking, alcohol, or illicit drugs. FAMILY HISTORY: Father had myocardial infarction. Mother had colon cancer. REVIEW OF SYSTEMS: All systems were reviewed and found to be noncontributory except as mentioned in the history of present illness. HOME MEDICATIONS: * Apixaban 5 mg p.o. b.i.d. * Aspirin 81 mg p.o. daily. * Digoxin 125 mcg p.o. daily. * Nexium 40 mg p.o. daily. * Repatha 140 mg every two weeks. * Finasteride 5 mg p.o. daily. * Levothyroxine 75 mcg p.o. daily. * Lisinopril 5 mg p.o. b.i.d. * Myrbetriq 50 mg p.o. daily. * Flomax 0.4 mg p.o. daily. * Nitroglycerin as needed. ALLERGIES: * Statins * Diazepam. PHYSICAL EXAMINATION: Temperature 97.8, pulse 72, respiratory rate 18, blood pressure 116/64, 94% saturation on room air. Heart: Irregular in rate and rhythm. Lungs: Clear to auscultation. Abdomen: Soft, nontender, nondistended. No pedal edema. No musculoskeletal abnormalities. No rash. No sign of meningeal irritation. Patient is awake, alert, and oriented to place, person, and time. Normal speech, comprehension, and interpretation. Extraocular muscles are intact. No facial weakness. Tongue and uvula are midline. 5/5 strength in all four extremities. Deep tendon reflexes are 1+ throughout. Normal sensation throughout. Gait is normal. DIAGNOSTIC STUDIES: CT scan of head initially showed hyperdense left MCA, but CTA of head and neck did not reveal any MCA stenosis or occlusion. There is atherosclerotic disease of carotid artery which is mild. CT scan of cervical spine showed multilevel cervical spondylosis and degenerative disc disease with bilateral C5-6, C6-7 foraminal moderate stenosis. LDL was 47 with HDL 42 and total cholesterol 116. CBC and metabolic profile were within normal limits. ASSESSMENT: 1. Left arm numbness and weakness. 2. Suspected left cervical radiculopathy, left ulnar and median nerve compression. 3. TIA is less likely. PLAN: 1. Continue aspirin 81 mg p.o. daily and Eliquis 5 mg p.o. b.i.d. 2. Continue Repatha 140 mg subcutaneous q.2 weeks. 3. Follow up with our office in two weeks after hospital discharge. EMG nerve conduction study of arms on outpatient basis. SABRINA
--- NOTE | 2020-01-11 10:48 | CR ---
DATE OF CONSULTATION: REFERRING PHYSICIAN: Dr. Brant Leblanc. REASON FOR CONSULTATION: Left arm numbness and weakness transiently. HISTORY OF PRESENT ILLNESS: The patient is an 79-year-old man with a history of atrial fibrillation, pacemaker placement, diastolic congestive heart failure, bladder carcinoma, and TIA who presented to [facility] with episode of left arm numbness and weakness when he was painting a door. He was trying to open a can of paint when he felt his left arm felt funny, and he had to use force to open the can. He felt his left arm felt weak. Numbness went up his left arm. It lasted for five minutes. During the night when he was holding something in both hands, he felt his left hand again became numb and tingly affecting medial three fingers of left hand. This lasted for a couple of minutes. He denies any headaches, neck pain, back pain, dysphagia, dysarthria, diplopia, urinary incontinence, trouble with his speech, left-sided face, or left leg during his episodes yesterday. PAST MEDICAL/SURGICAL HISTORY: * Atrial fibrillation. * Hypothyroidism. * Prostate enlargement. * Bladder cancer. * Dyslipidemia. * TIA. * Tonsillectomy. * Retinal detachment repair. * Inguinal hernia repair. * Cataract extraction. 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 * Pacemaker placement. * Basal cell carcinoma resection on his back. SOCIAL HISTORY: He denies smoking, alcohol, or illicit drugs. FAMILY HISTORY: Father had myocardial infarction. Mother had colon cancer. REVIEW OF SYSTEMS: All systems were reviewed and found to be noncontributory except as mentioned in the history of present illness. HOME MEDICATIONS: * Apixaban 5 mg p.o. b.i.d. * Aspirin 81 mg p.o. daily. * Digoxin 125 mcg p.o. daily. * Nexium 40 mg p.o. daily. * Repatha 140 mg every two weeks. * Finasteride 5 mg p.o. daily. * Levothyroxine 75 mcg p.o. daily. * Lisinopril 5 mg p.o. b.i.d. * Myrbetriq 50 mg p.o. daily. * Flomax 0.4 mg p.o. daily. * Nitroglycerin as needed. ALLERGIES: * Statins * Diazepam. PHYSICAL EXAMINATION: Temperature 97.8, pulse 72, respiratory rate 18, blood pressure 116/64, 94% saturation on room air. Heart: Irregular in rate and rhythm. Lungs: Clear to auscultation. Abdomen: Soft, nontender, nondistended. No pedal edema. No musculoskeletal abnormalities. No rash. No sign of meningeal irritation. Patient is awake, alert, and oriented to place, person, and time. Normal speech, comprehension, and interpretation. Extraocular muscles are intact. No facial weakness. Tongue and uvula are midline. 5/5 strength in all four extremities. Deep tendon reflexes are 1+ throughout. Normal sensation throughout. Gait is normal. DIAGNOSTIC STUDIES: CT scan of head initially showed hyperdense left MCA, but CTA of head and neck did not reveal any MCA stenosis or occlusion. There is atherosclerotic disease of carotid artery which is mild. CT scan of cervical spine showed multilevel cervical spondylosis and degenerative disc disease with bilateral C5-6, C6-7 foraminal moderate stenosis. LDL was 47 with HDL 42 and total cholesterol 116. CBC and metabolic profile were within normal limits. ASSESSMENT: * Left arm numbness and weakness. * Suspected left cervical radiculopathy, left ulnar and median nerve compression. * TIA is less likely. PLAN: * Continue aspirin 81 mg p.o. daily and Eliquis 5 mg p.o. b.i.d. * Continue Repatha 140 mg subcutaneous q.2 weeks. * Follow up with our office in two weeks after hospital discharge. EMG nerve conduction study of arms on outpatient basis. [facility]
== END 2019-12-29 14:42 | disposition home or self-care (01) ==
LOC: M ED 14:12 → M ED INP 14:13 → ENRESERV 18:34 → M MSPAV 20:25
PROVIDERS: ADMIT Family Medicine; ATTEND Family Medicine
DX: M48.02 Spinal stenosis, cervical region (principal); M54.12 Radiculopathy, cervical region; Z86.73 Personal history of transient ischemic attack (TIA), and cerebral infarction without residual deficits; I48.20 Chronic atrial fibrillation, unspecified; Z79.01 Long term (current) use of anticoagulants; E78.2 Mixed hyperlipidemia; E03.9 Hypothyroidism, unspecified; K21.9 Gastro-esophageal reflux disease without esophagitis; N40.0 Benign prostatic hyperplasia without lower urinary tract symptoms; C67.9 Malignant neoplasm of bladder, unspecified; N32.81 Overactive bladder; Z95.0 Presence of cardiac pacemaker; I50.30 Unspecified diastolic (congestive) heart failure; Z79.82 Long term (current) use of aspirin; Z79.899 Other long term (current) drug therapy; Z88.8 Allergy status to other drugs, medicaments and biological substances
CPT/HCPCS: 36415; 70450; 70496; 70498; 71045; 72125; 80047; 80048; 80053; 80061; 80162; 82550; 82553; 83735; 84484; 85025; 85610; 85730; 86850; 86900; 86901; 93005; 93041; 93306; 94760; 97161; 97530; 99285; G0378; Q9967

== ENCOUNTER → 2020-03-14 | Outpatient (CLI) | payer MEDICARE, OTHER ==
[~2020-03-14] MED LIST changes: +FINA5TAB2 PO; +LISI-542 PO; +MYRB50TA PO; +VITA200044 PO
[2020-03-14 10:49] LABS: HEMATOCRIT 42.2 % (42.0-52.0); HEMOGLOBIN 13.5 g/dl (13.5-17.5); PLATELET COUNT, AUTOMATED 160 10^3/uL (150-450); RED BLOOD COUNT 4.22 10^6/uL (4.30-6.10); WHITE BLOOD COUNT 8.5 10^3/uL (4.0-10.0)
[2020-03-14 11:20] LABS: ALBUMIN 3.4 GM/DL (3.2-5.2); ALT/SGPT 14 U/L (12-78); BILIRUBIN,TOTAL 0.7 MG/DL (0.2-1.0); BLOOD UREA NITROGEN 28 MG/DL (7-18); CALCIUM LEVEL 8.9 MG/DL (8.8-10.2); CARBON DIOXIDE LEVEL 31 MEQ/L (21-32); CHLORIDE LEVEL 105 MEQ/L (98-107); CHOLESTEROL LEVEL 110 MG/DL (<200); CHOLESTEROL RISK RATIO 2.391 (<5); CREATININE FOR GFR 1.08 MG/DL (0.70-1.30); GLOMERULAR FILTRATION RATE > 60.0 (>35); GLUCOSE, FASTING 102 MG/DL (70-100); HDL CHOLESTEROL 46 MG/DL (>40); LDL CHOLESTEROL 47 MG/DL (<100); MAGNESIUM LEVEL 2.2 MG/DL (1.8-2.4); NON-HDL-C 64 MG/DL; POTASSIUM SERUM 4.9 MEQ/L (3.5-5.1); SODIUM LEVEL 141 MEQ/L (136-145); TOTAL PROTEIN 6.5 GM/DL (6.4-8.2); TRIGLYCERIDES LEVEL 84 MG/DL (<150)
[2020-03-14 11:30] LABS: FOLATE 16.9 NG/ML; VITAMIN B12 LEVEL 450 PG/ML
== END ==
LOC: M PLALAB 09:22
PROVIDERS: ATTEND Internal Medicine
DX: E78.00 Pure hypercholesterolemia, unspecified (principal); I10 Essential (primary) hypertension; G47.30 Sleep apnea, unspecified; G62.9 Polyneuropathy, unspecified

== ENCOUNTER 2020-06-17 12:30 | Emergency (ER) | payer MEDICARE, OTHER ==
[~2020-06-17] VITALS: Ht 182.9 cm; Wt 96.4 kg
[~2020-06-17 12:30] MED LIST changes: -LISI-542 PO; +LISI-898 PO
[2020-06-17 13:35] LABS: BASO % 0.5 % (0.0-1.0); EOS # 0.2 10^3/uL (0.0-0.5); EOS % 1.8 % (0.0-3.0); HEMATOCRIT 39.4 % (42.0-52.0); HEMOGLOBIN 13.2 g/dl (13.5-17.5); LYMPH # 1.3 10^3/uL (1.5-5.0); LYMPH % 16.2 % (24.0-44.0); MEAN CORPUSCULAR HEMOGLOBIN 32.9 pg (27.0-33.0); MEAN CORPUSCULAR HGB CONC 33.5 g/dl (32.0-36.5); MEAN CORPUSCULAR VOLUME 98.3 fl (80.0-96.0); MONO # 0.9 10^3/uL (0.0-0.8); MONO % 10.4 % (2.0-8.0); NEUTROPHILS # 5.8 10^3/uL (1.5-8.5); NEUTROPHILS % 70.4 % (36.0-66.0); PLATELET COUNT, AUTOMATED 145 10^3/uL (150-450); RED BLOOD COUNT 4.01 10^6/uL (4.30-6.10); WHITE BLOOD COUNT 8.3 10^3/uL (4.0-10.0)
[2020-06-17 13:48] LABS: INR 1.29; PROTHROMBIN TIME 16.4 SECONDS (12.5-14.3)
[2020-06-17 13:55] LABS: C REACTIVE PROTEIN QUANTITATIV 7.18 MG/DL (0.00-0.30)
--- NOTE | 2020-06-17 14:00 | REP ---
INDICATION: LLE swelling/pain COMPARISON: None. 07/27/2006. TECHNIQUE: Real time compression and duplex Doppler interrogation of the left lower extremity deep venous system is performed. FINDINGS: The left common femoral, superficial femoral and popliteal veins are fully compressible with transducer pressure and demonstrate normal spontaneous and phasic flow, without evidence of acute deep venous thrombosis. There appears to be some minimal chronic thrombus scattered throughout the superficial femoral vein. IMPRESSION: No evidence of acute deep venous thrombosis of the left lower extremity femoral popliteal venous system. Minimal scattered chronic thrombus throughout the superficial femoral vein. <Electronically signed by Chidi Duvall > 06/17/20 [id number]
[2020-06-17 14:37] LABS: BLOOD UREA NITROGEN 29 MG/DL (7-18); CALCIUM LEVEL 9.1 MG/DL (8.8-10.2); CARBON DIOXIDE LEVEL 27 MEQ/L (21-32); CHLORIDE LEVEL 105 MEQ/L (98-107); CREATININE FOR GFR 1.22 MG/DL (0.70-1.30); GLOMERULAR FILTRATION RATE > 60.0 (>35); GLUCOSE, FASTING 107 MG/DL (70-100); POTASSIUM SERUM 4.5 MEQ/L (3.5-5.1); SODIUM LEVEL 138 MEQ/L (136-145)
[2020-06-17 14:50] LABS: ERYTHROCYTE SEDIMENTATION RATE 35 mm/hr (0-20)
[2020-06-17] MEDS ORDERED: CEPH500C PO (15:12)
[2020-06-17 15:36] VITALS: BP 144/87
== END 2020-06-17 15:41 | disposition home or self-care (01) ==
LOC: M ED 12:30
DX: L03.116 Cellulitis of left lower limb (principal); I11.0 Hypertensive heart disease with heart failure; I50.9 Heart failure, unspecified; E78.5 Hyperlipidemia, unspecified; E03.9 Hypothyroidism, unspecified; K21.9 Gastro-esophageal reflux disease without esophagitis; I48.91 Unspecified atrial fibrillation; Z95.5 Presence of coronary angioplasty implant and graft; Z88.8 Allergy status to other drugs, medicaments and biological substances; Z79.899 Other long term (current) drug therapy; Z79.890 Hormone replacement therapy; Z79.82 Long term (current) use of aspirin; Z79.01 Long term (current) use of anticoagulants

== ENCOUNTER → 2020-06-30 | Outpatient (REF) | payer MEDICARE, OTHER ==
[~2020-06-30] MED LIST changes: +CEPH500C PO
[2020-06-30 18:04] LABS: BASO # 0.1 10^3/uL (0.0-0.2); BASO % 0.8 % (0.0-1.0); EOS # 0.2 10^3/uL (0.0-0.5); HEMATOCRIT 42.9 % (42.0-52.0); HEMOGLOBIN 13.9 g/dl (13.5-17.5); LYMPH # 1.8 10^3/uL (1.5-5.0); LYMPH % 18.9 % (24.0-44.0); MEAN CORPUSCULAR HEMOGLOBIN 33.3 pg (27.0-33.0); MEAN CORPUSCULAR HGB CONC 32.4 g/dl (32.0-36.5); MEAN CORPUSCULAR VOLUME 102.9 fl (80.0-96.0); MONO % 10.9 % (2.0-8.0); NEUTROPHILS # 6.2 10^3/uL (1.5-8.5); NEUTROPHILS % 66.9 % (36.0-66.0); PLATELET COUNT, AUTOMATED 243 10^3/uL (150-450); RED BLOOD COUNT 4.17 10^6/uL (4.30-6.10); WHITE BLOOD COUNT 9.3 10^3/uL (4.0-10.0)
[2020-06-30 18:43] LABS: ALBUMIN 3.3 GM/DL (3.2-5.2); ALT/SGPT 16 U/L (12-78); BILIRUBIN,TOTAL 0.3 MG/DL (0.2-1.0); BLOOD UREA NITROGEN 26 MG/DL (7-18); C REACTIVE PROTEIN QUANTITATIV 0.61 MG/DL (0.00-0.30); CALCIUM LEVEL 8.9 MG/DL (8.8-10.2); CARBON DIOXIDE LEVEL 30 MEQ/L (21-32); CHLORIDE LEVEL 104 MEQ/L (98-107); CREATININE FOR GFR 1.06 MG/DL (0.70-1.30); GLOMERULAR FILTRATION RATE > 60.0 (>35); GLUCOSE, FASTING 99 MG/DL (70-100); MAGNESIUM LEVEL 2.1 MG/DL (1.8-2.4); POTASSIUM SERUM 4.7 MEQ/L (3.5-5.1); SODIUM LEVEL 139 MEQ/L (136-145); TOTAL PROTEIN 6.7 GM/DL (6.4-8.2)
[2020-06-30 18:53] LABS: ERYTHROCYTE SEDIMENTATION RATE 17 mm/hr (0-20)
== END ==
LOC: M SFHCPLAZ 13:47
PROVIDERS: ATTEND Internal Medicine
DX: C61 Malignant neoplasm of prostate (principal); E03.9 Hypothyroidism, unspecified; I10 Essential (primary) hypertension; Z87.2 Personal history of diseases of the skin and subcutaneous tissue
CPT/HCPCS: 36415; 80053; 83735; 84443; 85025; 85652; 86140; G0463

== ENCOUNTER 2020-09-01 12:08 | Inpatient (IN) | payer MEDICARE, OTHER ==
[~2020-09-01] VITALS: Ht 180.3 cm; Wt 94.1 kg
[2020-09-01] MEDS ORDERED: ACETAMINOPHEN TAB 650MG DOSE (2X325MG) PO ONE (13:30)
[2020-09-01 14:18] LABS: HEMATOCRIT 42.6 % (42.0-52.0); HEMOGLOBIN 13.9 g/dl (13.5-17.5); MEAN CORPUSCULAR HGB CONC 32.6 g/dl (32.0-36.5); MEAN CORPUSCULAR VOLUME 101.2 fl (80.0-96.0); PLATELET COUNT, AUTOMATED 148 10^3/uL (150-450); RED BLOOD COUNT 4.21 10^6/uL (4.30-6.10); WHITE BLOOD COUNT 19.6 10^3/uL (4.0-10.0)
[2020-09-01 14:50] LABS: ALBUMIN 3.5 GM/DL (3.2-5.2); ALT/SGPT 17 U/L (12-78); BILIRUBIN,DIRECT 0.3 MG/DL (0.0-0.2); BILIRUBIN,TOTAL 0.9 MG/DL (0.2-1.0); BLOOD UREA NITROGEN 20 MG/DL (7-18); CALCIUM LEVEL 8.7 MG/DL (8.8-10.2); CARBON DIOXIDE LEVEL 29 MEQ/L (21-32); CHLORIDE LEVEL 106 MEQ/L (98-107); CREATININE FOR GFR 1.04 MG/DL (0.70-1.30); GLOMERULAR FILTRATION RATE > 60.0 (>35); GLUCOSE, FASTING 103 MG/DL (70-100); LIPASE 33 U/L (73-393); POTASSIUM SERUM 4.1 MEQ/L (3.5-5.1); SODIUM LEVEL 141 MEQ/L (136-145); TOTAL PROTEIN 6.6 GM/DL (6.4-8.2)
[2020-09-01 14:54] LABS: ANISOCYTOSIS 1+; ATYPICAL LYMPH 3 % (0-5); HYPOCHROMASIA 1+; LYMPHOCYTES 5 % (16-44); MONOCYTES 3 % (0-5); NEUTROPHILS 70 % (28-66); PLATELET ESTIMATE DECREASED (NORMAL)
[2020-09-01] MEDS ORDERED: LIDOCAINE 2% 5ML JELLY UROJET TOP ONE (14:55)
--- NOTE | 2020-09-01 15:28 | REP ---
INDICATION: FUO. COMPARISON: Comparison portable chest x-ray December 28, 2019.. TECHNIQUE: Sitting AP portable chest x-ray. FINDINGS: A unipolar pacemaker is again seen in the right heart via the left side. Mild cardiac enlargement is observed unchanged. Pulmonary vasculature is not felt to be increased. There is a small AC opacity in the left base whicha appears to be new. Small infiltrate is suspected in the left lower lobe. Right lung is clear. The left lung is otherwise clear. Pleural angles are sharp. The aorta is calcific. No bony abnormality. IMPRESSION: Hazy opacity left base consistent with infiltrate. Mild cardiomegaly with pacemaker. <Electronically signed by Misael Christiansen > 09/01/20 [id number]
--- NOTE | 2020-09-01 16:37 | REP ---
INDICATION: FUO. COMPARISON: Comparison is made with today's chest x-ray. No comparison chest CT.. TECHNIQUE: Helical scanning is acquired. 3 mm axial images are generated. Coronal and sagittal MPR and coronal MIP images are generated. FINDINGS: Preliminary digital hop picker radiograph shows a pacemaker in the heart. Bowel gas pattern is unremarkable. There are linear densities in the left lower lobe, lingula, and right lower lobe consistent with bibasilar platelike atelectasis. No definite infiltrate is seen. There is a right middle lobe calcified granuloma. No lung mass lesion is observed. There is a perifissural nodule in the right lower lobe measuring 5 mm. No other pulmonary nodule is appreciated. There is no evidence of pleural effusion but there is a small pericardial effusion. Extensive vascular calcification is seen. A small sliding-type hiatal hernia is noted. No mediastinal mass is seen. There are 2 or 3 nonenlarged mediastinal lymph nodes. The largest of these measures 9 mm in short axis dimension. No adrenal lesion is seen. Bone window settings show no bony destructive lesion. IMPRESSION: Bibasilar platelike atelectasis. Small pericardial effusion. Pacemaker and cardiomegaly. Otherwise no acute finding. <Electronically signed by Misael Christiansen > 09/01/20 [id number]
--- NOTE | 2020-09-01 16:43 | REP ---
INDICATION: FUO COMPARISON: Comparison abdominal CT study is from October 12, 2007.. TECHNIQUE: Helical scanning is acquired and 3 mm axial images were reformatted. Coronal and sagittal MPR images were generated and reviewed. FINDINGS: There is a small sliding-type hiatal hernia. A small pericardial effusion is is seen as described on chest CT report. No adrenal lesion is seen. No focal liver lesion is seen. There is higher attenuation density in the dependent portion the gallbladder consistent with gallstones or mineralized sludge. No pericholecystic fluid is seen. No abnormality is noted in the pancreas. There is no evidence of hydronephrosis or renal calculus. No renal mass lesion is observed. There is a ventral hernia trans Padilla unobstructed loop of transverse colon. There is an aorto bi iliac or abdomen place. A stent graft is noted in the right external iliac artery. There are dystrophic calcifications in the prostate. Urinary bladder is unremarkable. There is no evidence of abscess or free air. IMPRESSION: Is 1. Suspect cholelithiasis versus sludge. 2. Ventral hernia trans Pad[place] an unobstructed loop of transverse colon in the supraumbilical anterior abdominal wall. 3. Small sliding-type hiatal hernia. 4. Small pericardial effusion. 5. Aorta bi-iliac graft and right iliac stent. <Electronically signed by Misael Christiansen > 09/01/20 0428
--- NOTE | 2020-09-01 17:55 | REP ---
INDICATION: cholecystitis COMPARISON: Noncontrast CT dated 09/01/2020 TECHNIQUE: Real time linda scale ultrasound examination using curved array transducer. FINDINGS: Liver is normal in contour, size, and echogenicity without focal hepatic lesions identified. Pancreas is incompletely evaluated due to interposed bowel gas. The gallbladder is mildly distended and includes gallstone at the neck of the gallbladder without wall thickening or pericholecystic fluid. No biliary ductal dilatation is appreciated and the common bile duct measures 4.1 mm diameter. Right kidney measures 10.0 x 5.1 x 4.6 cm without hydronephrosis and includes 1.6 cm upper pole cortical based hypodensity which may represent complex cyst. No ascites in the visualized right upper quadrant. IMPRESSION: 1. Cholelithiasis. No definite sonographic evidence for acute cholecystitis. 2. 1.6 cm right renal hypodensity possibly representing complex cyst may warrant outpatient pre and postcontrast CT of the abdomen for confirmation. <Electronically signed by Juan Oliveira > 09/01/20 [id number]
[2020-09-01] MEDS ORDERED: PIPERACILLIN/TAZOBACTAM SOD 3.375 GM in D5W MINI-BAG PLUS 50 ML IV ONE (18:30)
[2020-09-01] MEDS ORDERED: ACETAMINOPHEN TAB 650MG DOSE (2X325MG) PO PRN (19:35)
[2020-09-01] MEDS ORDERED: ONDANSETRON 4MG/2ML VIAL IV PRN (19:35)
[2020-09-01] MEDS ORDERED: MAALOX 30 ML SUSP *UDC PO PRN (19:35)
[2020-09-01] MEDS ORDERED: MOM 30ML SUSPENSION UDC PO PRN (19:35)
--- NOTE | 2020-09-01 19:41 | HPEPDOC ---
[facility] Medical History & Physical Date of Admission September 01, 2020 Date of Service: September 01, 2020 Primary Care Physician: Abilio Wagner Attending Physician: TULIO STEVENS MD History and Physical TIME OF SERVICE: 905am CHIEF COMPLAINT: chills HISTORY OF PRESENT ILLNESS: At about 10:45 AM had an episode of non- blood emesis, there after he developed n/v/f/c, arm and leg pain. He was concerned that he might be developing cellulitis again so he came to the hospital. REVIEW OF SYSTEMS: 12-point review of systems negative except as listed in HPI PAST MEDICAL/ SURGICAL HISTORY: CAD s/p stents x3 / DLP, Afib (on AC), pacemaker, HFpEF, bladder cancer, hypothyroidism, UE weakness/numbness 2/2 C spine foraminal stenosis, ROLAND BIPAP 22/02, overactive bladder, tonsillectomy, bilateral retinal detachment repairs, R inguinal hernia repair, AA bi iliac graft, R iliac artery stent, pacemaker , BCC excision, SCC excision SOCIAL HISTORY: -T/ - A/ - D FAMILY HISTORY: Father - [place], age 78 / Mother - colon cancer, peritonitis, Age 78 ALLERGIES: Please see below. HOME MEDICATIONS: Please see below. PHYSICAL EXAMINATION: Vital Signs Date Time Temp Pulse Resp B/P (MAP) Pulse Ox O2 Delivery O2 Flow Rate FiO2 09/01/20 12:08 101.9 104 18 149/65 (93) 97 Room Air GENERAL APPEARANCE: well nourished and developed/ NAD HEENT: EOMI/ MMM&P CARDIOVASCULAR: RRR/NMRG LUNGS: CTAB on RA ABDOMEN: soft & NT/ no murphys sign MUSCULOSKELETAL: NCAT INTEGUMENT: abrasion on dorsal surface of right hand between fingers / 3rd toe on right foot slightly swollen but not red NEUROLOGICAL: CN 2-12 except hearing grossly intact/ speech not dysarthric PSYCHIATRIC: A&Ox 3 able to understand and follow all commands LABORATORY DATA: Neutrophils (%) (Auto) , Nucleated Red Blood Cells % (auto) 0.0, Neutrophils 70H, Band Neutrophils 19H, Lymphocytes (Manual) 5L, Monocytes (Manual) 3, Atypical Lymphocytes 3, Hypochromasia 1+, Anisocytosis 1+, Macrocytosis 1+, Platelet Estimate DECREASED, Anion Gap 6L, Glomerular Filtration Rate > 60.0, Calcium Level 8.7L, Total Bilirubin 0.9, Direct Bilirubin 0.3H, Aspartate Amino Transf (AST/SGOT) 13, Alanine Aminotransferase (ALT/SGPT) 17, Alkaline Phosphatase 68, Total Protein 6.6, Albumin 3.5, Albumin/Globulin Ratio 1.1, Lipase 33L 09/01/20 15:09: POC Lactate (Misc Panel) 1.72 Urine Color YELLOW, Urine Appearance CLEAR, Urine pH 7.0, Urine Specific [place] 1.025, Urine Protein 1+H, Urine Glucose (UA) NEGATIVE, Urine Ketones NEGATIVE, Urine Blood NEGATIVE, Urine Nitrite NEGATIVE, Urine Bilirubin NEGATIVE, Urine Urobilinogen 4.0H, Urine Leukocyte Esterase NEGATIVE, Urine WBC (Auto) 1, Urine RBC (Auto) 5H, Urine Hyaline Casts (Auto) 0, Urine Bacteria (Auto) NEGATIVE, Urine Squamous Epithelial Cells 0, Urine Mucus (Auto) SMALL, Urine Sperm (Auto) IMAGING: Chest xray IMPRESSION: Hazy opacity left base consistent with infiltrate. Mild cardiomegaly with pacemaker. US gallbladder IMPRESSION: 1. Cholelithiasis. No definite sonographic evidence for acute cholecystitis. 2. 1.6 cm right renal hypodensity possibly representing complex cyst may warrant outpatient pre and postcontrast CT of the abdomen for confirmation. CT chest IMPRESSION: Bibasilar platelike atelectasis. Small pericardial effusion. Pacemaker and cardiomegaly. Otherwise no acute finding. CT abd/pelvis IMPRESSION: 1. Suspect cholelithiasis versus sludge. 2. Ventral hernia trans Pad[place] an unobstructed loop of transverse colon in the supraumbilical anterior abdominal wall. 3. Small sliding-type hiatal hernia. 4. Small pericardial effusion. 5. Aorta bi-iliac graft and right iliac stent. MICROBIOLOGY: respiratory panel neg ASSESSMENT: is an 80 yr old w CAD s/p stents x3 / DLP, Afib (on AC), pacemaker, HFpEF, bladder cancer, hypothyroidism who presented w n/v/f/c/ malaise and vomiting; he will be admitted for sepsis of unclear cause. PLAN: 1 Sepsis Suspect GI source +/- bacteremia SIRS criteria: Temp >101 / HR >90 / bands >10% / WBC > 12 POC lactate 1.72 Plan: bc his qSOFA score is 0 will admit to PCU / telemetry / Zosyn and vancomycin / IVF /f/u blood cx, / Acetaminophen PRN for fever / target MAP at of least 65 to 70 / f/u Is and Os with target UOP of at least 0.5 ml/kg/H / f/u FSBS w target serum glucose 140-180 while acutely ill 2 r/o Biliary dyskinesia Plan: Zofran / f/u HIDA scan 3 atelectasis Plan incentive spirometer 4 CAD s/p stents x3 / DLP Plan: Aspirin, Evolocumab 5 Longstanding persistent Afib / pacemaker Plan: Apixaban, Digoxin 6 Chronic HFpEF / HTN Plan: Lisinopril 7 hypothyroidism Plan: Levothyroxine 8 ROLAND Plan:BIPAP 9 Overactive bladder Plan: Mirabegron DVT px w n/a on DOAC Dispo: home after at least 2 midnights stay Home Medications Scheduled Apixaban (Eliquis) 5 Mg Tablet, 5 MG PO BID Aspirin (Aspirin EC) 81 Mg Tablet.dr, 81 MG PO DAILY Carboxymethyl/Glycerin/Poly80 (Refresh Optive Advanced Drops) 10 Ml Drops, 1 DROP OU QID Cholecalciferol (Vitamin D3) (Vitamin D3) 50 Mcg Capsule, 50 MCG PO DAILY Clobetasol Propionate (Clobetasol Propionate) 0.05% 118ML Shampoo, 1 APPLIC TOP 2XWK APPLY TO DRY SCALP Digoxin (Digoxin) 125 Mcg Tablet, 125 MCG PO 4XWK TAKES ON TUESDAY, TUESDAY, TUESDAY AND TUESDAY Eplerenone (Eplerenone) 25 Mg Tablet, 25 MG PO DAILY HOLD IF BP <110/70 Esomeprazole Magnesium (Esomeprazole Magnesium) 40 Mg Capsule.dr, 40 MG PO QHS Evolocumab (Repatha Sureclick) 140 Mg/1 Ml Pen.injctr, 140 MG SC Q2WK Finasteride (Finasteride) 5 Mg Tablet, 5 MG PO DAILY Glucosa Campa 2Kcl/Chondroitin Campa (Glucosamine & Chondroitin Cap) 1 Each Capsule, 1 EACH PO DAILY Icosapent Ethyl (Vascepa) 1 Gm Capsule, 1 GM PO BID Levothyroxine Sodium (Synthroid) 75 Mcg Tablet, 75 MCG PO DAILY Lisinopril (Lisinopril) 5 Mg Tablet, 5 MG PO QHS HOLD IF SBP<130 Tamsulosin HCl (Flomax) 0.4 Mg Capsule, 0.4 MG PO QPM TAKES 1/2 HOUR AFTER DINNER Vit C/E/Zn/Coppr/Lutein/Zeaxan (Preservision Areds 2 Softgel) 1 Each Capsule, 1 EACH PO BID Scheduled PRN Carboxymethylcellulos/Glycerin (Refresh Optive Gel Eye Drops) 10 Ml Drops.gel, 1 DROP OU QHS PRN for DRY EYES Nitroglycerin (Nitrostat) 0.4 Mg Tab.subl, 0.4 MG SL NITRO PRN for CHEST PAIN Allergies Coded Allergies: Hwfavwt-Deg-Bkk Reductase Inhibitor (Verified Allergy, Unknown, CRAMPING , 08/13/18) diazepam (Verified Allergy, Unknown, MAKES PSYCOTIC , 08/13/18) A-FIB/CHADSVASC A-FIB History Current/History of A-Fib/PAF?: Yes Current PO Anticoag Therapy: Yes TULIO STEVENS MD September 01, 2020 19:41
[2020-09-01] MEDS ORDERED: EPLE25TA PO (19:48)
[2020-09-01] MEDS ORDERED: VANCOMYCIN HCL 1,000 MG, VIAL MATE ADAPTER 1 EACH in NS 250 ML IV ONE (20:00)
[2020-09-01] MEDS: NS 1,000 ML IV SCH (20:07)
[2020-09-01] MEDS ORDERED: ASPI81TA26 PO (20:09)
--- NOTE | 2020-09-01 20:20 | ECGEPIP ---
[facility] - ED Test Date: 2020-09-01 Pat Name: ZACHARY AMARO Department: Room: - Gender: Male Regulatory Affairs Analyst: SATURNINO : 1940 Requested By: Josep Galvan Order Number: [id number] Reading MD: Brandon Parikh Measurements Intervals [place] Rate: 94 P: [place]: QRS: -32 QRSD: 78 T: -15 QT: 356 QTc: 445 Interpretive Statements Atrial fibrillation Left axis deviation Inferior Q waves of uncertain significance Possible Anterior infarct , age undetermined Low QRS complex voltage in the limb leads Delayed anterior R wave progression Baseline artifact Similar to tracing done 08-13-18 Electronically Signed on 09-01-2020 20:20:27 EDT by Brandon Parikh
[2020-09-01] MEDS ORDERED: VANCOMYCIN HCL 750 MG, VIAL MATE ADAPTER 1 EACH in NS 250 ML IV ONE (21:00)
[2020-09-01] MEDS ORDERED: lisinopriL 5 MG TAB PO SCH (21:00)
[2020-09-01] MEDS ORDERED: NITROGLYCERIN 0.4 MG SUBL TABLET SL PRN (23:00)
[2020-09-01] MEDS: VASCEPA 1 GM PO SCH (23:00)
[2020-09-01] MEDS: PIPERACILLIN/TAZOBACTAM SOD 4.5 GM in D5W MINI-BAG PLUS 50 ML IV SCH (23:30)
[2020-09-01 23:36] VITALS: BP 119/57
[2020-09-01] MEDS: TAMSULOSIN 0.4 MG CAP PO SCH (23:44)
[2020-09-01] MEDS: APIXABAN 5 MG TAB (ELIQUIS) PO SCH (23:45)
[2020-09-02 04:25] VITALS: BP 126/65
[2020-09-02] MEDS: PIPERACILLIN/TAZOBACTAM SOD 4.5 GM in D5W MINI-BAG PLUS 50 ML IV SCH (05:29)
[2020-09-02 05:51] LABS: BASO # 0.1 10^3/uL (0.0-0.2); BASO % 0.3 % (0.0-1.0); HEMATOCRIT 41.4 % (42.0-52.0); HEMOGLOBIN 13.4 g/dl (13.5-17.5); LYMPH # 1.1 10^3/uL (1.5-5.0); LYMPH % 5.3 % (24.0-44.0); MEAN CORPUSCULAR HEMOGLOBIN 32.8 pg (27.0-33.0); MEAN CORPUSCULAR HGB CONC 32.4 g/dl (32.0-36.5); MEAN CORPUSCULAR VOLUME 101.5 fl (80.0-96.0); MONO # 0.8 10^3/uL (0.0-0.8); MONO % 3.8 % (2.0-8.0); NEUTROPHILS # 18.8 10^3/uL (1.5-8.5); NEUTROPHILS % 89.6 % (36.0-66.0); PLATELET COUNT, AUTOMATED 123 10^3/uL (150-450); RED BLOOD COUNT 4.08 10^6/uL (4.30-6.10)
[2020-09-02] MEDS: LEVOTHYROXINE 75MCG TABLET (0.075MG) PO SCH (06:17)
[2020-09-02 06:24] LABS: BLOOD UREA NITROGEN 24 MG/DL (7-18); CALCIUM LEVEL 8.2 MG/DL (8.8-10.2); CARBON DIOXIDE LEVEL 23 MEQ/L (21-32); CHLORIDE LEVEL 107 MEQ/L (98-107); GLOMERULAR FILTRATION RATE > 60.0 (>35); GLUCOSE, FASTING 86 MG/DL (70-100); POTASSIUM SERUM 4.1 MEQ/L (3.5-5.1); SODIUM LEVEL 141 MEQ/L (136-145)
[2020-09-02 08:00] VITALS: BP 108/58
[2020-09-02] MEDS: VANCOMYCIN HCL 1,000 MG, VIAL MATE ADAPTER 1 EACH in NS 250 ML IV SCH ×2 (08:14→21:50)
[2020-09-02] MEDS: NS 1,000 ML IV SCH ×2 (08:16→18:31)
[2020-09-02] MEDS: VASCEPA 1 GM PO SCH ×2 (09:00→21:00)
[2020-09-02] MEDS ORDERED: SPIRONOLACTONE 25 MG TAB PO SCH (09:00)
--- NOTE | 2020-09-02 09:26 | IPN ---
PROGRESS NOTE DATE: 09/02/2020 SUBJECTIVE: The patient complains of bilateral lower extremity pain. He has noted redness and swelling at the left lower extremity. White count is still increasing up to 21,000 today from 19.6 yesterday. Lactic acid still pending. The patient denies nausea, vomiting, or right upper quadrant pain. CT abdomen and pelvis showed biliary sludge. Liver function tests within normal limits with no elevations of total bilirubin. The patient had a T-max of 102.6 yesterday currently on Vanco and Zosyn without any complaints of diarrhea. OBJECTIVE: VITAL SIGNS: T-max 102.6, current temperature 99.1, pulse 88 irregular, respiratory rate 17, blood pressure 108/58, 92% on room air. GENERAL: The patient is awake, alert, oriented to person, place, and time. Pleasant and communicative. No distress. LUNGS: Clear to auscultation with no wheezing, rales, or rhonchi. HEART: S1, S2. Sinus rhythm. ABDOMEN: Soft, nontender, and nondistended with positive bowel sounds. No rebound or guarding. No hepatosplenomegaly. EXTREMITIES: Left lower extremity has erythema, slight tenderness, and swelling. Chronic venous stasis changes bilateral lower extremities. LABORATORY DATA: White count 21, hemoglobin 13, hematocrit 41, platelet count 123,000. Sodium 141, potassium 4, chloride 107, bicarb 23. IMAGING STUDIES: CT chest with bibasilar plate-like atelectasis, small pericardial effusion, pacemaker, and cardiomegaly with no acute findings. CT abdomen and pelvis with gallbladder sludge and ventral hernia with an nonobstructive loop of transverse colon superior umbilical anterior abdominal wall, small hiatal hernia, small pericardial effusion, right iliac stent. ASSESSMENT AND PLAN: 1. Left lower extremity cellulitis currently on vancomycin and Zosyn. Bandemia on exam and fever of 102.6. Lactic acid cinos-se-fnzb was 1.72. Continue on broad-spectrum antibiotics until white count is decreasing. 2. Gallbladder sludging. No complaints of nausea, vomiting, or abdominal pain. White count is increased. Currently broadly covered with gram-negative, for gram-negative, and anaerobic with Zosyn awaiting HIDA scan. 3. Coronary artery disease (CAD) status post stent x3 with dyslipidemia currently on aspirin and evolocumab. 4. Longstanding persistent atrial fibrillation with a pacemaker, apixaban, and digoxin. 5. Chronic heart failure with preserved systolic ejection fraction. Due to low blood pressure and sepsis, the patient's lisinopril and Spironolactone will be held temporarily today. 6. Disposition: Continue on progressive care unit (PCU). Broad-spectrum coverage until white count is improved. MTDD
[2020-09-02 09:51] LABS: ALBUMIN 2.6 GM/DL (3.2-5.2); BILIRUBIN,DIRECT 0.4 MG/DL (0.0-0.2); BILIRUBIN,TOTAL 1.1 MG/DL (0.2-1.0); C REACTIVE PROTEIN QUANTITATIV 14.3 MG/DL (0.00-0.30); TOTAL PROTEIN 5.2 GM/DL (6.4-8.2)
[2020-09-02] MEDS: ASPIRIN 81MG ENTERIC TABLET PO SCH (11:07)
[2020-09-02] MEDS: FINASTERIDE 5 MG TAB PO SCH (11:07)
[2020-09-02] MEDS: DIGOXIN 0.125 MG TAB PO SCH (11:08)
[2020-09-02] MEDS: APIXABAN 5 MG TAB (ELIQUIS) PO SCH ×2 (11:08→21:50)
[2020-09-02 12:00] VITALS: BP 107/63
[2020-09-02] MEDS: PIPERACILLIN/TAZOBACTAM SOD 3.375 GM in D5W MINI-BAG PLUS 50 ML IV SCH ×2 (12:28→18:30)
--- NOTE | 2020-09-02 12:56 | REP ---
INDICATION: VOMITING. COMPARISON: Comparison CT study and sonography September 01, 2020.. TECHNIQUE/RADIOTRACER AND DOSE: 6.6 mCi of Technetium-99m mebrofenin was injected and sequential anterior images are acquired. FINDINGS: The initial hepatocellular parenchymal uptake phase is normal and homogeneous. Intra- and extra-hepatic bile ducts are labeled by the 10-minute image. The gallbladder is first labeled on the 15-minute image. There is normal washout from the liver parenchyma into the gallbladder and small intestine on subsequent images. IMPRESSION: Normal hepatobiliary scan, normal gallbladder visualization. <Electronically signed by Misael Christiansen > 09/02/20 0287
[2020-09-02 16:00] VITALS: BP 125/58
[2020-09-02] MEDS: TAMSULOSIN 0.4 MG CAP PO SCH (18:31)
[2020-09-02 20:00] VITALS: BP 128/68
[2020-09-03] VITALS: BP 107/58
[2020-09-03] MEDS: PIPERACILLIN/TAZOBACTAM SOD 3.375 GM in D5W MINI-BAG PLUS 50 ML IV SCH ×2 (00:03→05:33)
[2020-09-03] MEDS: NS 1,000 ML IV SCH ×3 (01:15→11:35)
[2020-09-03 04:00] VITALS: BP 122/70
[2020-09-03] MEDS: LEVOTHYROXINE 75MCG TABLET (0.075MG) PO SCH (05:32)
[2020-09-03 07:43] LABS: ERYTHROCYTE SEDIMENTATION RATE 48 mm/hr (0-20)
[2020-09-03 08:00] VITALS: BP 128/64
[2020-09-03 08:21] LABS: BASO # 0.1 10^3/uL (0.0-0.2); BASO % 0.4 % (0.0-1.0); EOS # 0.2 10^3/uL (0.0-0.5); EOS % 1.1 % (0.0-3.0); HEMATOCRIT 37.5 % (42.0-52.0); HEMOGLOBIN 12.6 g/dl (13.5-17.5); LYMPH # 1.5 10^3/uL (1.5-5.0); LYMPH % 9.6 % (24.0-44.0); MEAN CORPUSCULAR HEMOGLOBIN 33.3 pg (27.0-33.0); MEAN CORPUSCULAR HGB CONC 33.6 g/dl (32.0-36.5); MEAN CORPUSCULAR VOLUME 99.2 fl (80.0-96.0); MONO # 1.1 10^3/uL (0.0-0.8); MONO % 7.4 % (2.0-8.0); NEUTROPHILS # 12.4 10^3/uL (1.5-8.5); NEUTROPHILS % 80.7 % (36.0-66.0); PLATELET COUNT, AUTOMATED 120 10^3/uL (150-450); RED BLOOD COUNT 3.78 10^6/uL (4.30-6.10); WHITE BLOOD COUNT 15.4 10^3/uL (4.0-10.0)
[2020-09-03 08:27] LABS: BLOOD UREA NITROGEN 19 MG/DL (7-18); CARBON DIOXIDE LEVEL 26 MEQ/L (21-32); CHLORIDE LEVEL 107 MEQ/L (98-107); CREATININE FOR GFR 1.04 MG/DL (0.70-1.30); GLOMERULAR FILTRATION RATE > 60.0 (>35); GLUCOSE, FASTING 106 MG/DL (70-100); POTASSIUM SERUM 3.7 MEQ/L (3.5-5.1); SODIUM LEVEL 139 MEQ/L (136-145)
[2020-09-03 08:28] LABS: ALBUMIN 2.7 GM/DL (3.2-5.2); ALT/SGPT 14 U/L (12-78); BILIRUBIN,TOTAL 0.8 MG/DL (0.2-1.0); CALCIUM LEVEL 8.6 MG/DL (8.8-10.2); MAGNESIUM LEVEL 1.8 MG/DL (1.8-2.4); TOTAL PROTEIN 5.7 GM/DL (6.4-8.2)
[2020-09-03] MEDS: FINASTERIDE 5 MG TAB PO SCH (08:54)
[2020-09-03] MEDS: APIXABAN 5 MG TAB (ELIQUIS) PO SCH ×2 (08:54→19:47)
[2020-09-03] MEDS: ASPIRIN 81MG ENTERIC TABLET PO SCH (08:54)
[2020-09-03] MEDS: VANCOMYCIN HCL 1,000 MG, VIAL MATE ADAPTER 1 EACH in NS 250 ML IV SCH (08:55)
[2020-09-03] MEDS: VASCEPA 1 GM PO SCH ×2 (09:00→19:47)
--- NOTE | 2020-09-03 10:50 | IPN ---
PROGRESS NOTE DATE: 09/03/2020 SUBJECTIVE: Patient has had no fever or chills. No nausea, vomiting or abdominal pain. HIDA scan was negative. Patient's diet was advanced. Left lower extremity cellulitis erythema is improving. No other complaints overnight. Denies any chills. Patient complains of insomnia but does not want to take any medications for insomnia. White count is decreased from 21,000 yesterday to 15,000 today. Blood cultures shows gram positive cocci in chains. No diarrhea. OBJECTIVE: VITAL SIGNS: Temperature is 98.5. Pulse is 88. Respiratory rate is 18. Blood pressure is 122/70, 94% BiPAP. GENERAL: Awake, alert and oriented to person, place and time. She is answering questions appropriately. She is in no distress. NECK: No JVD or thyromegaly. LUNGS: Clear to auscultation. No wheezes, rales or rhonchi. HEART: S1 and S2, irregularly irregular. ABDOMEN: Soft, nontender and nondistended. Positive bowel sounds. No rebound or guarding. No CVA tenderness. EXTREMITIES: +3 edema in left lower extremity, pink in color, less deep red as compared to yesterday. Chronic venous stasis changes and 1+ pitting edema bilaterally. LABORATORY DATA: White count is 15, hemoglobin is 12, hematocrit is 37, platelet count is 120,000, admission platelet count is 148,000. C-reactive protein is 17.6. Blood culture preliminary gram positive cocci. HIDA scan on 09/01 was normal. ASSESSMENT AND PLAN: This is an 80-year-old full code admitted on 09/01/2020 with chronic atrial fibrillation, CAD status post stent x3, dyslipidemia, chronic diastolic heart failure, admitted on 09/01 due to sepsis with fever of 102.6, white count of 19.6, given intravenous Zosyn with possible intraabdominal infection. CT of chest showed bibasilar platelet-like atelectasis, pacemaker, small pericardial effusion, cardiomegaly. CT of the abdomen and pelvis showed gallbladder sludge, ventral hernia, right iliac stent, HIDA scan was negative. Patient had abnormal liver function tests, was treated with intravenous Zosyn initially. 1. Patient complained of bilateral lower extremity pain, swelling with left lower extremity having erythematous changes with well-delineated demarcation. Patient is currently being treated for left lower extremity cellulitis, currently on IV Vancomycin. He does not appear to have any intraabdominal infection with no signs of colitis or cholangitis on CT of the abdomen and pelvis. Patient is on IV Vancomycin. 2. Gram positive bacteremia, rule out endocarditis. An echocardiogram has been ordered. White count is decreasing, currently on Vancomycin and renally dosed by pharmacy. 3. CAD status post stent, stable. No acute ischemic complaints. 4. BPH on chronic Proscar. 5. Congestive heart failure, diastolic dysfunction. Continue on home medications, Digoxin and aspirin. 6. Chronic atrial fibrillation, chronic Eliquis, rate controlled on Digoxin. 7. Debility, PT/OT consulted. 8. Hypothyroidism, on Synthroid. 9. Disposition: Await 2-D echo report. Identification of bacteria on the blood culture. Will need to rule out endocarditis if Staph aureus bacteremia is noted.
[2020-09-03] MEDS: cefTRIAXone SOD 2 GM in D5W MINI-BAG PLUS 50 ML IV SCH (13:05)
[2020-09-03 13:20] LABS: IMMUNOGLOBULIN G 683 MG/DL (681-1648); IMMUNOGLOBULIN M 42.4 MG/DL (40-230)
--- NOTE | 2020-09-03 14:57 | ECHO ---
DATE OF PROCEDURE: 09/02/2020 Age: 80 Gender: Male Height: 180 cm Weight: 93 kg REFERRING PHYSICIAN: Dr. Freda Allen. INDICATION: Sepsis, bacteremia. MEASUREMENTS: 2D Measurements: Interventricular septum 1.25 cm Posterior wall 1.21 cm Left ventricle diastole 4.3 cm Left atrium 4.0 cm Aortic root 3.7 cm Inferior vena cava 2.4 cm (more than 50% respiratory variation) Doppler Measurements: Aortic valve velocity 180 cm/s Very mild mitral regurgitation Very mild tricuspid regurgitation Estimated right ventricle systolic pressure 49-54 mmHg Estimated right atrial pressure 5-10 mmHg Pulmonary artery acceleration time 158 msec No pulmonic regurgitation MITRAL ANNULAR TISSUE DOPPLER E prime septal 7.0 cm/s, E prime lateral 13.1 cm/s DESCRIPTION: Rhythm was atrial fibrillation with controlled ventricular rate. Some PVCs were observed. Image quality was adequate. This was a 2D, M-mode, color flow Doppler, and pulsed wave Doppler examination including mitral annular tissue Doppler. CONCLUSIONS: 1. Very mild concentric left ventricle hypertrophy. Normal regional LV wall motion and wall thickening. Normal LV systolic function. Normal systolic function. LVEF 70-75% by visual estimate. LV diastolic function indeterminate in the presence of atrial fibrillation. 2. Normal right ventricle size and systolic function. Suggestive of moderate elevation of estimated right ventricle systolic pressure (49-54 mmHg). Very mild tricuspid regurgitation. 3. Mild aortic valve sclerosis of a 3-cusp aortic valve. No aortic regurgitation. 4. Mild mitral annular calcification. Mild mitral regurgitation. 5. Tiny pericardial effusion over the right ventricular free wall and right atrium. No diastolic chamber collapse. 6. Presence of a right ventricle pacemaker lead. 7. No vegetations identified on the cardiac valve. MTDD
[2020-09-03 16:00] VITALS: BP 125/67
[2020-09-03] MEDS: TAMSULOSIN 0.4 MG CAP PO SCH (17:25)
[2020-09-03] MEDS: PRESERVISION AREDS2 PO SCH (19:47)
[2020-09-03] MEDS: MULTI PO SCH (19:47)
[2020-09-03 22:00] VITALS: BP 145/70
[2020-09-04 06:00] VITALS: BP 142/70
[2020-09-04] MEDS: LEVOTHYROXINE 75MCG TABLET (0.075MG) PO SCH (06:16)
[2020-09-04] MEDS ORDERED: LEVALBUTEROL 1.25 MG/0.5 ML CONCENTRATE NEB INH PRN (08:40)
[2020-09-04] MEDS ORDERED: metOLazone 2.5 MG TAB PO ONE (09:00)
[2020-09-04] MEDS ORDERED: FUROSEMIDE 40MG/4ML VIAL (J1940) IV ONE (09:30)
[2020-09-04] MEDS: ASPIRIN 81MG ENTERIC TABLET PO SCH (09:50)
[2020-09-04] MEDS: APIXABAN 5 MG TAB (ELIQUIS) PO SCH ×2 (09:51→20:58)
[2020-09-04] MEDS: DIGOXIN 0.125 MG TAB PO SCH (09:51)
[2020-09-04] MEDS: MULTI PO SCH ×2 (09:51→20:55)
[2020-09-04] MEDS: FINASTERIDE 5 MG TAB PO SCH (09:51)
[2020-09-04] MEDS: PRESERVISION AREDS2 PO SCH ×2 (09:51→20:55)
[2020-09-04] MEDS: VASCEPA 1 GM PO SCH ×2 (09:51→20:55)
[2020-09-04 09:56] LABS: ALBUMIN 2.6 GM/DL (3.2-5.2); ALT/SGPT 18 U/L (12-78); BILIRUBIN,TOTAL 0.5 MG/DL (0.2-1.0); BLOOD UREA NITROGEN 17 MG/DL (7-18); CALCIUM LEVEL 8.1 MG/DL (8.8-10.2); CARBON DIOXIDE LEVEL 25 MEQ/L (21-32); CHLORIDE LEVEL 111 MEQ/L (98-107); CREATININE FOR GFR 0.83 MG/DL (0.70-1.30); GLOMERULAR FILTRATION RATE > 60.0 (>35); GLUCOSE, FASTING 112 MG/DL (70-100); POTASSIUM SERUM 3.4 MEQ/L (3.5-5.1); SODIUM LEVEL 143 MEQ/L (136-145); TOTAL PROTEIN 5.7 GM/DL (6.4-8.2)
[2020-09-04 09:57] LABS: IMMUNOGLOBULIN G 635 MG/DL (681-1648); IMMUNOGLOBULIN M 39.1 MG/DL (40-230)
--- NOTE | 2020-09-04 10:36 | REP ---
INDICATION: sob cough r/o chf. COMPARISON: Comparison chest x-ray September 01, 2020. TECHNIQUE: Two views.. FINDINGS: A unipolar pacemaker is again seen in the heart view of the left side. The lungs overall are hyperinflated with flattening of the hemidiaphragms. There is linear opacity in the left base consistent with discoid atelectasis or fibrosis. This area corresponds to the area of density seen on September 01, 2020 study. It is slightly more prominent than linear fibrosis seen on December 28, 2019 in this location. No other infiltrate is seen. There is also minimal platelike atelectasis in the right base. There are degenerative changes in thoracic spine. Pulmonary vasculature is not increased. IMPRESSION: Pacemaker. Platelike atelectasis versus fibrosis left base. Discoid atelectasis right base.. <Electronically signed by Misael Christiansen > 09/04/20 1035
[2020-09-04] MEDS: LEVALBUTEROL 1.25 MG/0.5 ML CONCENTRATE NEB INH SCH ×4 (10:58→19:31)
[2020-09-04 11:27] LABS: BASO % 0.3 % (0.0-1.0); EOS # 0.2 10^3/uL (0.0-0.5); EOS % 1.6 % (0.0-3.0); HEMATOCRIT 36.7 % (42.0-52.0); HEMOGLOBIN 11.9 g/dl (13.5-17.5); LYMPH % 8.8 % (24.0-44.0); MEAN CORPUSCULAR HEMOGLOBIN 32.8 pg (27.0-33.0); MEAN CORPUSCULAR HGB CONC 32.4 g/dl (32.0-36.5); MEAN CORPUSCULAR VOLUME 101.1 fl (80.0-96.0); MONO # 0.9 10^3/uL (0.0-0.8); MONO % 7.8 % (2.0-8.0); NEUTROPHILS # 9.4 10^3/uL (1.5-8.5); NEUTROPHILS % 80.8 % (36.0-66.0); PLATELET COUNT, AUTOMATED 126 10^3/uL (150-450); RED BLOOD COUNT 3.63 10^6/uL (4.30-6.10); WHITE BLOOD COUNT 11.6 10^3/uL (4.0-10.0)
[2020-09-04] MEDS: cefTRIAXone SOD 2 GM in D5W MINI-BAG PLUS 50 ML IV SCH (13:04)
--- NOTE | 2020-09-04 13:25 | IPN ---
PROGRESS NOTE DATE: 09/04/2020 SUBJECTIVE: Patient seen and examined at bedside. Chart has been reviewed this morning. He complains of slight cough, difficult to catch his breath yesterday after a coughing fit. His diuretics had been held initially due to sepsis with white count 20 thousand. The patient denies any intraabdominal complaints. No nausea, vomiting, abdominal pain, diarrhea, constipation. Able to tolerate his diet well. No abdominal pain in the epigastric region. HIDA scan was unremarkable despite gallbladder sludging. OBJECTIVE: VITAL SIGNS: Temperature is 97.3. Pulse 79. Respiratory 16. Blood pressure is 142/70, 97% on room air. GENERAL: Awake, alert and oriented x3, very pleasant. No use of respiratory accessory muscles. Able to speak in full sentences. HEENT: No JVD, no thyromegaly. LUNGS: Diminished with bilateral crackles. HEART: S1, S2, irregularly irregular. ABDOMEN: Obese, soft, nontender and non-distended. EXTREMITIES: 2+ pitting edema bilaterally. Chronic venous stasis noted, left lower extremity has improved, erythema, no induration, decreased tenderness. Echocardiogram shows EF of 70-75%, moderate RV systolic pressure 49-54 mmHg, very mild tricuspid regurg, mild mitral regurg. Right ventricular pacemaker, no vegetation identified on cardiac valves. LABORATORY DATA: White count 15 on 09/03, today is pending. Potassium 3.4, C-reactive protein 12.4 from 17.6. Microbiology group B Strep, blood cultures two sets 09/01 no growth. 09/03 respiratory panel negative. ASSESSMENT AND PLAN: This is an 80-year-old male full code, history of chronic Afib, pacemaker, CAD stent x3, dyslipidemia, chronic diastolic heart failure, EF of 70%, admitted on 09/01 due to sepsis with fever of 102.6, white count of 19.6, abnormal liver function tests with CT showing gallbladder sludging. HIDA scan was negative. The patient had no complaints of nausea or vomiting. He was given intravenous Zosyn initially. The patient continued to complain of bilateral lower extremity swelling, weakness with left lower extremity erythema, treated for left lower extremity cellulitis. Blood cultures grew out Group B Strep. The patient was initially on intravenous Vancomycin, changed to IV Ceftriaxone with decreasing white count, remained afebrile. IMPRESSION: 1. Group B Strep bacteremia. Echocardiogram had no signs of endocarditis. Source could be the left lower extremity cellulitis. The patient had no intraabdominal complaints on admission. Workup included CT abdomen and pelvis, HIDA scan due to findings of abnormal liver function tests and gallbladder sludging on CT but HIDA scan was negative. The patient improved on antibiotics. He is tolerating his diet with out nausea, vomiting or abdominal pain, without fever or chills. Dr. Garrett Foss has been consulted to determine the need for transesophageal echocardiogram to rule out endocarditis. We are tracking C-reactive protein and sed rate with decreasing white count and clinically improving. 2. Left lower extremity cellulitis. Initially on IV Vancomycin, changed to IV Ceftriaxone with significant improvement clinically. 3. History of CAD status post stent, no acute ischemic complaints, continued on his home medications. 4. Diastolic congestive heart failure with slight fluid overload due to IV fluids given for sepsis. IV fluids have been discontinued. He has been given Zaroxolyn and Lasix. Will continue to monitor volume clinically and decide on further diuretics. 5. BPH on chronic Proscar. 6. Chronic atrial fibrillation, on chronic Eliquis, rate controlled on Digoxin. 7. Hypothyroidism, on Synthroid. 8. Disposition: Await recommendations from infectious disease specialist to determine whether the patient needs intravenous medications for the bacteremia for two weeks. If so we will need to arrange for PICC line to be placed and to complete antibiotics as outpatient. If plans are to have a transesophageal echocardiogram and 6 weeks of IV antibiotics we will still need to arrange for discharge planner to do JAKUB and the antibiotics to be arranged with [facility] and PICC line to be placed. SABRINA
[2020-09-04] MEDS ORDERED: FLUCONAZOLE 100 MG TAB PO ONE (15:55)
[2020-09-04] MEDS ORDERED: GASTROGRAFIN SOLUTION 30ML PO SCH (16:15)
--- NOTE | 2020-09-04 17:02 | CR.PDOC ---
General Date of Consultation: September 04, 2020 Attending Physician: Garrett Foss MD Consultation REASON FOR CONSULTATION: Group B Streptococcus bacteremia HISTORY OF PRESENT ILLNESS: Chris Sheets is an 80 YO M with history of HFpEF , CAD s/p stent x3 who presented to [facility] on 09/01/2020 with weakness, nausea, vomiting, subjective fevers and chills at home. In the ED he was found to be septic with fever, leukocytosis and lactic acidosis and was started on empiric Rocephin. The patient states that he had this same presentation 06/17/20, which prompted an ER visit at [facility]. At that time he was found to have cellulitis of the left leg and was discharged from the ED on 10 days of Keflex. Following that antibiotic course, his leg improved. In mid July he underwent a TURBT procedure for his recurrent bladder cancer which was uneventful. Today, he reports that his leg feels much better but swelling is worse than it has been in the past. He normally wears compression stockings at home daily but has not been wearing them in the hospital. He has not had any fevers, chills, nausea, vomiting or diarrhea in the past 48 hours. He has noticed two small ulcers on the bottom of his left foot and notes that he sees Dr. Cooper 3-4x a year. ALLERGIES: Please see below. HOME MEDICATIONS: Please see below. PAST MEDICAL HISTORY: HFpEF (12/2019, EF 60-65%)(08/2020, EF 70-75%), Hypercholesterolemia. Bladder cancer s/p TURBT x 4 Sleep apnea. Elevated fasting glucose. Hypothyroidism. Peripheral neuropathy. Lower extremity edema. Coronary artery disease s/p 3 stents intermediate (current) use of anticoagulants. Sleep related leg cramps. Hypertension. Neoplasm of bladder s/p TURB x 4 Chronic atrial fibrillation. Right leg pain. Confusion, hx of, without neuro findings. PAST SURGICAL HISTORY: Tonsillectomy Bilateral retinal detachment repairs 1983 Left inguinal hernia repair 06/16. 06/2007 Colonoscopy 10/2008 Right inguinal hernia repair 12/18. 12/2008 Bilateral cataract extractions 07/2009 Repair of abdominal aortic aneurysm and bilateral common iliac artery aneurysms with aorta bi-internal iliac artery bypass graft and aorta to external iliac artery bypass graft on 07/06/2010 at the [facility]. 07/06/10 Right iliac artery stent 02/18/2011. 02/18/2011 Pacemaker 08/04/11 Ahuimanu's, 3 cardiac stents placed with angioplasty and ablation, Dr. 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 Ch 07/12/2017 TURBT and circumcision 06/12/2018 TURBT for recurrent bladder cancer 01/17/2019 Cystoscopy, Transurethral resection of bladder tumor-Dr. Silveira 10/01/2019 FAMILY HISTORY: Father: 78 yrs, diagnosed with Unspecified heart disease Mother: 78 yrs, peritonitis Father and mother of natural causes. Three brothers living, one had prostate cancer. Three healthy daughters. 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 REVIEW OF SYSTEMS: Constitutional: No Weight Change, No Fever, No Chills, No Night Sweats, No Fatigue, No Malaise ENT/Mouth: No Hearing Changes, No Ear Pain, No Nasal Congestion, No Sinus Pain Eyes: No Eye Pain, No Swelling, No Redness, No Foreign Body, No Discharge, No Vision Changes Cardiovascular: No Chest Pain, No SOB, No PND, No Dyspnea on Exertion, No Orthopnea, No Claudication, No Edema, No Palpitations Respiratory: No Cough, No Wheezing, No Dyspnea Gastrointestinal: No Nausea, No Vomiting, No Diarrhea, No Constipation, No Pain, No Dysphagia Genitourinary: No Dysuria Musculoskeletal: REports left lower extremity swelling with two ulcers on his left foot Skin: Two small ulcers on plantar surface of left foot, No Pruritis Neuro: No Weakness, No Numbness, No Paresthesias, No Loss of Consciousness, No Syncope, No Dizziness, No Headache, No Coordination Changes, No Recent Falls Psych: No Anxiety/Panic, No Depression, No Insomnia, No Personality Changes, No Delusions Heme/Lymph: No Bruising, No Bleeding, No Transfusions History, No Lymphadenopathy Endocrine: No Polyuria, No Polydipsia, No Temperature Intolerance PHYSICAL EXAMINATION: VITAL SIGNS: see below GENERAL: very pleasant, sitting at the bedside, alert and oriented, in no apparent distress, pleasant and conversant in full sentences. HEENT: PERRL, EOMI, Oral mucous membranes are moist without lesions. NECK: The patient has no noted JVD. No adenopathy is appreciated. No thyromegaly CHEST/LUNGS: Lungs are clear bilaterally without rhonchi, rales, or wheezes. The re is no subcutaneous air appreciated. There is no tenderness to the chest wall. HEART: Irregulary irregular rhythm. Normal S1/S2. No murmurs, rubs, or gallops are appreciated. Distal pulses are 2+. No carotid bruits appreciated. ABDOMEN: Midline abdominal umbilical hernia, does not appear incarcerated, Soft, nontender, and nondistended. Bowel sounds are positive. No organomegaly is appreciated. No masses are appreciated. There are no peritoneal signs. There is no [place] sign. EXTREMITIES: Left lower extremity is 3+ pitting edema with erythema up to the thigh. R lower extremity has hemosiderin deposits up to the calf SKIN: Some dry patches of skin at the umbilicus and scattered on the face. There is irritation and redness at the groin bilaterally underneath the distribution of his depends diaper PSYCHIATRIC: AAO x 3, normal mood/affect NEUROLOGIC: The patient has 5/5 strength to the upper and lower extremities bilaterally. Sensation is intact throughout. Deep tendon reflexes are 2+ in all four extremities. There are no deficits to the cranial nerves. LABORATORY DATA: Please see below. IMAGING: ECHOCARDIOGRAM 09/02/20: CONCLUSIONS: 1. Very mild concentric left ventricle hypertrophy. Normal regional LV wall motion and wall thickening. Normal LV systolic function. Normal systolic function. LVEF 70-75% by visual estimate. LV diastolic function indeterminate inthe presence of atrial fibrillation. 2. Normal right ventricle size and systolic function. Suggestive of moderate el evation of estimated right ventricle systolic pressure (49-54 mmHg). Very mildtricuspid regurgitation. 3. Mild aortic valve sclerosis of a 3-cusp aortic valve. No aortic regurgitation. 4. Mild mitral annular calcification. Mild mitral regurgitation. 5. Tiny pericardial effusion over the right ventricular free wall and right atrium. No diastolic chamber collapse. 6. Presence of a right ventricle pacemaker lead. 7. No vegetations identified on the cardiac valve. ASSESSMENT: This is an 80 YO M with history of HFpEF, CAD, Bladder cancer who presented to [facility] on 09/01 with nausea/vomiting/fever/chills found to have left lower leg cellulitis complicated by group B streptococcus in blood cultures. PLAN: 1. Group B Streptococcus bacteremia from LLE cellulitis -Blood cultures positive x 2 on 09/01/20, repeat blood cultures have been negative -s/p IV Rocephin x 2 days -Will switch to PO Amoxicillin 500mg TID for total of 7 days -Ordered LLE doppler US to r/o DVT, although less likely as he is in on anticoagulation -Would recommend follow up with vascular surgeon for vascular studies after discharge to rule out venous insufficiency and lymphedema as reason for recurrent cellulitis -Ordered antiembolic stockings 2. Charmaine infection of groin: likely 2/2 depends undergarments for incontinence: -One dose of Diflucan 200mg given -Please use daily Nystatin powder in groin 3. Dry patches on skin in umbilicus: possibly psoriasis -Ordered Triamcinolone ointment Vital Signs/I&O Vital Signs Date Time Temp Pulse Resp B/P (MAP) Pulse Ox O2 Delivery O2 Flow Rate FiO2 09/04/20 15:46 16 09/04/20 09:51 79 09/04/20 06:00 97.3 142/70 (94) 97 Room Air I&O- Last 24 Hours up to 6 AM 09/04/20 06:00 Intake Total 2990 ml Output Total 2175 ml Balance 815 ml Laboratory Data Labs 24H Laboratory Tests 2 09/04/20 09:01: Anion Gap 7L, Glomerular Filtration Rate > 60.0, Calcium Level 8.1L, Magnesium Level 2.0, Total Bilirubin 0.5, Aspartate Amino Transf (AST/SGOT) 16, Alanine Aminotransferase (ALT/SGPT) 18, Alkaline Phosphatase 73, C-Reactive Protein, Quantitative 12.40H, Total Protein 5.7L, Albumin 2.6L, Albumin/Globulin Ratio 0.8, Immunoglobulin A 289.0, Immunoglobulin G 635L, Immunoglobulin M 39.1L 09/04/20 10:28: Immature Granulocyte % (Auto) 0.7, Neutrophils (%) (Auto) 80.8H, Lymphocytes (%) (Auto) 8.8L, Monocytes (%) (Auto) 7.8, Eosinophils (%) (Auto) 1.6, Basophils (%) (Auto) 0.3, Neutrophils # (Auto) 9.4H, Lymphocytes # (Auto) 1.0L, Monocytes # (Auto) 0.9H, Eosinophils # (Auto) 0.2, Basophils # (Auto) 0.0, Nucleated Red Blood Cells % (auto) 0.0 CBC/BMP Laboratory Tests 09/04/20 09:01 09/04/20 10:28 Microbiology Microbiology 09/03/20 Blood Culture - Preliminary, Resulted No growth after 24 hours . All specim... 09/03/20 Blood Culture - Preliminary, Resulted No growth after 24 hours . All specim... 09/01/20 Respiratory Virus Panel (PCR) (KRISTAL) - Final, Complete 09/01/20 Blood Culture - Final, Complete Strep Agalactiae Group B 09/01/20 Blood Culture - Final, Complete Strep Agalactiae Group B Allergies Coded Allergies: Pjgouck-Dem-Ntx Reductase Inhibitor (Verified Allergy, Unknown, CRAMPING , 08/13/18) diazepam (Verified Allergy, Unknown, MAKES PSYCOTIC , 08/13/18) Home Medications Scheduled Amoxicillin (Amoxicillin) 500 Mg Capsule, 500 MG PO TID for 7 Days, #21 Apixaban (Eliquis) 5 Mg Tablet, 5 MG PO BID, (Reported) Aspirin (Aspirin EC) 81 Mg Tablet.dr, 81 MG PO DAILY, (Reported) Carboxymethyl/Glycerin/Poly80 (Refresh Optive Advanced Drops) 10 Ml Drops, 1 DROP OU QID, (Reported) Cholecalciferol (Vitamin D3) (Vitamin D3) 50 Mcg Capsule, 50 MCG PO DAILY, (Reported) Clobetasol Propionate (Clobetasol Propionate) 0.05% 118ML Shampoo, 1 APPLIC TOP 2XWK, (Reported) APPLY TO DRY SCALP Digoxin (Digoxin) 125 Mcg Tablet, 125 MCG PO 4XWK, (Reported) TAKES ON TUESDAY, TUESDAY, TUESDAY AND TUESDAY Eplerenone (Eplerenone) 25 Mg Tablet, 25 MG PO DAILY, (Reported) HOLD IF BP <110/70 Esomeprazole Magnesium (Esomeprazole Magnesium) 40 Mg Capsule.dr, 40 MG PO QHS, (Reported) Evolocumab (Repatha Sureclick) 140 Mg/1 Ml Pen.injctr, 140 MG SC Q2WK, (Reported) Finasteride (Finasteride) 5 Mg Tablet, 5 MG PO DAILY, (Reported) Glucosa Campa 2Kcl/Chondroitin Campa (Glucosamine & Chondroitin Cap) 1 Each Capsule, 1 EACH PO DAILY, (Reported) Icosapent Ethyl (Vascepa) 1 Gm Capsule, 1 GM PO BID, (Reported) Levothyroxine Sodium (Synthroid) 75 Mcg Tablet, 75 MCG PO DAILY, (Reported) Lisinopril (Lisinopril) 5 Mg Tablet, 5 MG PO QHS, (Reported) HOLD IF SBP<130 Tamsulosin HCl (Flomax) 0.4 Mg Capsule, 0.4 MG PO QPM, (Reported) TAKES 1/2 HOUR AFTER DINNER Vit C/E/Zn/Coppr/Lutein/Zeaxan (Preservision Areds 2 Softgel) 1 Each Capsule, 1 EACH PO BID, (Reported) Scheduled PRN Carboxymethylcellulos/Glycerin (Refresh Optive Gel Eye Drops) 10 Ml Drops.gel, 1 DROP OU QHS PRN for DRY EYES, (Reported) Nitroglycerin (Nitrostat) 0.4 Mg Tab.subl, 0.4 MG SL NITRO PRN for CHEST PAIN, (Reported) GME ATTESTATION GME ATTESTATION My faculty preceptor for this patient encounter was physically present during the encounter and was fully available. All aspects of the patient interview, exa mination, medical decision making process, and medical care plan development were reviewed and approved by the faculty preceptor. The faculty preceptor is aware and concurs with the plan as stated in the body of this note and will attest to such by his/her cosignature. CARLEE WAGONER MD September 04, 2020 17:02 Garrett Foss MD September 05, 2020 14:37
--- NOTE | 2020-09-04 18:21 | REP ---
INDICATION: r/o DVT COMPARISON: None. TECHNIQUE: Udvall scale and color Doppler evaluation using linear high frequency transducer. FINDINGS: Ultrasound examination of the left lower extremity deep venous structures from the common femoral vein through the calf veins including peroneal, anterior and posterior tibial veins demonstrates normal compressibility flow and wave patterns in response to respiration and augmentation. There is no evidence for deep venous thrombosis. Contralateral common femoral vein is patent. IMPRESSION: No evidence for deep venous thrombosis. <Electronically signed by Juan Oliveira > 09/04/20 [id number]
[2020-09-04 19:53] LABS: ERYTHROCYTE SEDIMENTATION RATE 56 mm/hr (0-20)
[2020-09-04 20:00] VITALS: BP 153/71
[2020-09-04] MEDS: TAMSULOSIN 0.4 MG CAP PO SCH (20:57)
[2020-09-04] MEDS: AMOXICILLIN 500 MG CAP PO SCH (20:58)
[2020-09-04] MEDS: NYSTATIN 100,000 UNITS/GM TOPICAL PWD 15 GM TOP SCH (20:59)
[2020-09-04] MEDS: TRIAMCINOLONE ACETONIDE 0.025 % 80 GM CREAM TOP SCH (21:02)
[2020-09-05] MEDS: LEVALBUTEROL 1.25 MG/0.5 ML CONCENTRATE NEB INH SCH ×3 (00:12→07:46)
[2020-09-05] MEDS: LEVOTHYROXINE 75MCG TABLET (0.075MG) PO SCH (05:27)
[2020-09-05 06:15] VITALS: BP 140/78
[2020-09-05 06:53] LABS: BASO # 0.1 10^3/uL (0.0-0.2); BASO % 0.7 % (0.0-1.0); EOS # 0.2 10^3/uL (0.0-0.5); EOS % 2.5 % (0.0-3.0); HEMATOCRIT 37.2 % (42.0-52.0); HEMOGLOBIN 12.6 g/dl (13.5-17.5); LYMPH # 1.3 10^3/uL (1.5-5.0); LYMPH % 14.2 % (24.0-44.0); MEAN CORPUSCULAR HEMOGLOBIN 33.1 pg (27.0-33.0); MEAN CORPUSCULAR HGB CONC 33.9 g/dl (32.0-36.5); MEAN CORPUSCULAR VOLUME 97.6 fl (80.0-96.0); MONO % 10.9 % (2.0-8.0); NEUTROPHILS # 6.5 10^3/uL (1.5-8.5); NEUTROPHILS % 70.8 % (36.0-66.0); PLATELET COUNT, AUTOMATED 146 10^3/uL (150-450); RED BLOOD COUNT 3.81 10^6/uL (4.30-6.10); WHITE BLOOD COUNT 9.1 10^3/uL (4.0-10.0)
[2020-09-05 07:13] LABS: BLOOD UREA NITROGEN 15 MG/DL (7-18); CALCIUM LEVEL 8.6 MG/DL (8.8-10.2); CARBON DIOXIDE LEVEL 27 MEQ/L (21-32); CHLORIDE LEVEL 105 MEQ/L (98-107); CREATININE FOR GFR 0.83 MG/DL (0.70-1.30); GLOMERULAR FILTRATION RATE > 60.0 (>35); GLUCOSE, FASTING 103 MG/DL (70-100); POTASSIUM SERUM 3.2 MEQ/L (3.5-5.1); SODIUM LEVEL 140 MEQ/L (136-145)
[2020-09-05] MEDS: ASPIRIN 81MG ENTERIC TABLET PO SCH (08:45)
[2020-09-05] MEDS: FINASTERIDE 5 MG TAB PO SCH (08:45)
[2020-09-05] MEDS: PRESERVISION AREDS2 PO SCH (08:46)
[2020-09-05] MEDS: APIXABAN 5 MG TAB (ELIQUIS) PO SCH (08:46)
[2020-09-05] MEDS: VASCEPA 1 GM PO SCH (08:46)
[2020-09-05] MEDS: AMOXICILLIN 500 MG CAP PO SCH (08:46)
[2020-09-05] MEDS: MULTI PO SCH (08:46)
[2020-09-05] MEDS: NYSTATIN 100,000 UNITS/GM TOPICAL PWD 15 GM TOP SCH (08:47)
[2020-09-05] MEDS: TRIAMCINOLONE ACETONIDE 0.025 % 80 GM CREAM TOP SCH (08:47)
[2020-09-05] MEDS ORDERED: AMOX500C PO (09:18)
[2020-09-05] MEDS ORDERED: POTASSIUM CHLORIDE 10 MEQ SR TABLET PO ONE (10:00)
--- NOTE | 2020-09-05 12:07 | DSES ---
DISCHARGE SUMMARY DATE OF ADMISSION: 09/01/2020 DATE OF DISCHARGE: 09/05/2020 MINE ENGINEERING SUPERINTENDENT(S) DURING THIS ADMISSION: Garrett Foss M.D., infectious disease specialist. PROCEDURE(S) DURING THIS ADMISSION: Echocardiogram read by Dr. Brandon Souza. PRIMARY DISCHARGE DIAGNOSES: 1. Left lower extremity cellulitis complicated by group Streptococcus bacteremia. 2. Group B streptococcus bacteremia. 3. History of coronary artery disease (CAD) status post stent. 4. Diastolic congestive heart failure, compensated. 5. BPH. 6. Chronic atrial fibrillation (AFib). 7. Hypothyroidism. 8. Incidental finding of gallbladder sludging. DISCHARGE MEDICATIONS: 1. Amoxicillin 500 mg p.o. t.i.d. 2. Apixaban 5 mg b.i.d. 3. Aspirin 81 daily. 4. Refresh eye drops both eyes q.i.d. 5. Refresh q. h.s. as needed. 6. Vitamin D 50 mcg daily. 7. Clobetasol topically twice a week. 8. Digoxin 125 mcg four times a week. 9. Eplerenone 25 mg daily. 10. Esomeprazole 40 mg q. h.s. 11. Evolocumab 140 mg subcutaneously every two weeks. 12. Finasteride 5 mg daily. 13. Glucosamine one capsule daily. 14. Synthroid 75 mcg daily. 15. Lisinopril 5 daily. 16. Nitroglycerin 0.4 as needed. 17. Tamsulosin 0.4. 18. Vitamin C one capsule b.i.d. 19. Finasteride 5 mg daily. HOSPITAL COURSE: This is an 80-year-old male admitted on 09/01 due to fever of 102.6, white count of 19, and abnormal liver function tests with CT showing gallbladder sludging. The patient has a history of CAD with stent x3, chronic AFib, pacer, dyslipidemia, chronic diastolic heart failure with EF of 70%, found to have abnormal liver function tests and CT showing gallbladder sludging. Given intravenous Zosyn on admission. Urinalysis was negative. Chest x-ray was negative. HIDA scan the next day was negative. The patient's diet was increased. He was kept on Zosyn for three days, but found to have a left lower extremity cellulitis for which he was given IV vancomycin. Blood cultures grew out group B strep. Vancomycin was discontinued. Zosyn discontinued. The patient was kept on intravenous ceftriaxone. White count had decreased from admission with white blood cell count of 21,000 to discharge of 9.1. He remained afebrile throughout the entire admission. Infectious disease specialist, Dr. Garrett Foss, was consulted. Echocardiogram showed no endocarditis. ID recommended amoxicillin for seven days and then discharge home. Left lower extremity cellulitis improved with decreasing erythema and redness. Due to lower extremity edema, the patient underwent vascular ultrasound, which was negative for DVT. DISCHARGE PHYSICAL EXAMINATION: VITAL SIGNS: Temperature 98.2, pulse 85, respiratory rate 18, blood pressure 140/78, 98% on room air. GENERAL: The patient is awake, alert, and oriented x3. Answering questions appropriately. NECK: No JVD. No thyromegaly. LUNGS: Clear to auscultation with no wheezing, rales, or rhonchi. HEART: S1, S2. Irregularly irregular. ABDOMEN: Soft, nontender, and nondistended. No CVA tenderness. EXTREMITIES: Chronic 2+ pitting edema bilateral lower extremities. Less erythema and tenderness. LABORATORY DATA: White count 9, hemoglobin 12, hematocrit 37, platelet count 146,000 with admission platelet count of 123,000. Sodium 140, potassium 3.2, chloride 105, bicarb 27, BUN 15, creatinine 0.83, and glucose of 103. MICROBIOLOGY: Group B strep two sets of blood cultures 09/01/2020. Repeat blood cultures 09/03 no growth after 48 hours. Respiratory panel and Coronavirus negative. IMAGING DATA: On 09/04 venous Dopplers with no DVT. Chest x-ray 09/04/2020, pacemaker, plate-like atelectasis, fibrosis, discoid atelectasis at the right base. HIDA scan negative. Gallbladder ultrasound 09/01/2020 with cholelithiasis and a 1.6 cm right renal hypodensity warrant pre- and postcontrast CT of the abdomen for confirmation. DISCHARGE INSTRUCTIONS: Repeat CT pre- and post contrast of the abdomen to evaluate right renal hypodensity 1.6 mm noted on routine gallbladder ultrasound. Time spent on discharge 30 minutes. [facility]
== END 2020-09-05 11:20 | disposition home or self-care (01) | DRG 603 ==
LOC: M ED 12:08 → M ED INP 19:32 → M PCU 23:08 → M MS5PR 09-04 23:20
PROVIDERS: ADMIT Internal Medicine; ATTEND General Practice
DX: L03.116 Cellulitis of left lower limb (principal); I50.32 Chronic diastolic (congestive) heart failure; J98.11 Atelectasis; I48.11 Longstanding persistent atrial fibrillation; R78.81 Bacteremia; R11.2 Nausea with vomiting, unspecified; I25.10 Atherosclerotic heart disease of native coronary artery without angina pectoris; E78.5 Hyperlipidemia, unspecified; E03.9 Hypothyroidism, unspecified; K82.8 Other specified diseases of gallbladder; L40.9 Psoriasis, unspecified; M48.02 Spinal stenosis, cervical region; G47.33 Obstructive sleep apnea (adult) (pediatric); N32.81 Overactive bladder; B95.1 Streptococcus, group B, as the cause of diseases classified elsewhere; B37.2 Candidiasis of skin and nail; Z95.0 Presence of cardiac pacemaker; Z95.820 Peripheral vascular angioplasty status with implants and grafts; Z85.828 Personal history of other malignant neoplasm of skin; Z79.01 Long term (current) use of anticoagulants; Z79.899 Other long term (current) drug therapy; Z79.82 Long term (current) use of aspirin; Z88.8 Allergy status to other drugs, medicaments and biological substances

== ENCOUNTER → 2020-09-12 | Outpatient (REF) | payer MEDICARE, OTHER ==
[~2020-09-12] MED LIST changes: +AMOX500C PO; +ASPI81TA26 PO; +EPLE25TA PO
[2020-09-12 10:17] LABS: BASO # 0.1 10^3/uL (0.0-0.2); BASO % 0.5 % (0.0-1.0); EOS # 0.3 10^3/uL (0.0-0.5); EOS % 2.4 % (0.0-3.0); HEMOGLOBIN 12.7 g/dl (13.5-17.5); LYMPH # 1.8 10^3/uL (1.5-5.0); LYMPH % 17.1 % (24.0-44.0); MEAN CORPUSCULAR HEMOGLOBIN 32.5 pg (27.0-33.0); MEAN CORPUSCULAR HGB CONC 31.8 g/dl (32.0-36.5); MEAN CORPUSCULAR VOLUME 102.3 fl (80.0-96.0); MONO # 0.9 10^3/uL (0.0-0.8); MONO % 8.7 % (2.0-8.0); NEUTROPHILS # 7.5 10^3/uL (1.5-8.5); NEUTROPHILS % 70.2 % (36.0-66.0); PLATELET COUNT, AUTOMATED 286 10^3/uL (150-450); RED BLOOD COUNT 3.91 10^6/uL (4.30-6.10); WHITE BLOOD COUNT 10.6 10^3/uL (4.0-10.0)
[2020-09-12 10:50] LABS: ALT/SGPT 32 U/L (12-78); BILIRUBIN,TOTAL 0.4 MG/DL (0.2-1.0); BLOOD UREA NITROGEN 19 MG/DL (7-18); CALCIUM LEVEL 8.8 MG/DL (8.8-10.2); CARBON DIOXIDE LEVEL 30 MEQ/L (21-32); CHLORIDE LEVEL 105 MEQ/L (98-107); CREATININE FOR GFR 1.01 MG/DL (0.70-1.30); GLOMERULAR FILTRATION RATE > 60.0 (>35); GLUCOSE, FASTING 112 MG/DL (70-100); MAGNESIUM LEVEL 2.3 MG/DL (1.8-2.4); POTASSIUM SERUM 4.5 MEQ/L (3.5-5.1); SODIUM LEVEL 139 MEQ/L (136-145); TOTAL PROTEIN 6.4 GM/DL (6.4-8.2)
== END ==
LOC: M PLALAB 08:09
PROVIDERS: ATTEND Internal Medicine
DX: G47.30 Sleep apnea, unspecified (principal); I10 Essential (primary) hypertension; E03.9 Hypothyroidism, unspecified